=== PATIENT | male | born 1965 | race Caucasian/White ===

== ENCOUNTER 2016-06-28 06:01 | Outpatient (CLI) | payer MEDICARE ==
[~2016-06-28] VITALS: Ht 180.3 cm; Wt 104.5 kg
--- NOTE | ~2016-06-28 | HEMODYNAMI ---
PATIENT:KRISH DIOP MEDICAL RECORD: [id number] : 61 LOCATION:DKevinCAT ADMISSION DATE: 06/28/16 Generatedon:06/28/20168:23 Patient name: KRISH DIOP Patient #: [id number] : 1965 Date of study: 06/28/2016 Page: Of Hemodynamic Procedure Report Patient Data Patient Demographics Procedure consent was obtained First Name: KRISH Gender: Male Last Name: CHIKIS : 1965 Middle Initial: CARLOS Age: 51 year(s) Patient #: [id number] Race: Unknown SSN: [id number] Additional ID: [id number] Contact details Address: [address] [place] [address] State: [place] City: [facility] [place] Zip code: [address] Past Medical History Allergies: No known allergies Admission Admission Data Admission Date: 06/28/2016 Admission Time: 6:01 Admit Source: Other Insurance Payor: Private health insurance Height (in.): 71 BSA: 2.24 (m2) Height (cm.): 180.34 BMI: 32.08 (kg/m2) Weight (lbs.): 230 Weight (kg.): 104.33 Medications upon Admission Medications Dosage Times Administered Last Remarks per Delivery Day Date and Time Clopidogrel Yes 06/27/2016 0:00 Lab Results Lab Result Date: 06/28/2016 Lab Result Time: 6:30 Biochemistry Name Units Result Min Max Creatinine mg/dl 0.9 --(-*--)-- 0.6 1.3 CBC Name Units Result Min Max Hemoglobin g/dl 15.7 --(--*-)-- 13.5 17.5 Procedure Procedure Types Cath Procedure Diagnostic Procedure LHC LHC w/Coronaries w/Grafts Miscellaneous Procedures Moderate Sedation up to 30 minutes Procedure Description Procedure Date Procedure Date: 06/28/2016 Procedure Start Time: 7:57 Procedure End Time: 8:23 Procedure Staff Name Function Sagar Huitron MD Performing Physician Nano Herndon RN Nurse Kanu Horn RT Monitor Flores Cartagena RT Scrub Indication Angina Procedure Data Cath Procedure Fluoroscopy Diagnostic fluoroscopy Total fluoroscopy Time: 4.7 time: 4.7 min min Diagnostic fluoroscopy Total fluoroscopy dose: 929 dose: 929 mGy mGy Contrast Material Contrast Material Type Amount (ml) Isovue 300 99 Entry Location Entry Primary Successful Side Size Upsize Upsize Entry Closure Succes sful Closure Location (Fr) 1 (Fr) 2 (Fr) Remarks Device Remarks Femoral Right 5 Fr Exoseal artery Estimated blood loss: 5 ml Diagnostic catheters Device Type Used For End Catheter Placement Cordis 5Fr JL 4.0 Procedure Catheter (MP) Cordis Infinity 5Fr AR Procedure MOD Catheter Cordis Infinity 5Fr IM Procedure catheter Cordis Infinity 5Fr AR 2 Procedure MOD catheter Cordis 5Fr Pigtail Procedure Catheter (MP) Procedure Complications No complications Procedure Medications Medication Administration Route Dosage Oxygen NC 2 l/min Lidocaine 2% added to field 20 Heparin Flush Bag added to field 2 bags (1000units/500ml NS) 0.9% NaCl I.V. 100 ml/hr Versed I.V. 1 mg Fentanyl I.V. 50 mcg Versed I.V. 1 mg Fentanyl I.V. 50 mcg Versed I.V. 1 mg Fentanyl I.V. 50 mcg Versed I.V. 1 mg Fentanyl I.V. 50 mcg Hemodynamics Rest BSA: 2.24 (m2) HGB: 15.7 (g/dl) O2 Consumption: Estimated: 268.22 (ml/min) O2 Co nsumption indexed: Estimated:119.74 (ml/min/m) Heart Rate: 72 (bpm) Pressure Samples Time Site Value (mmHg) Purpose Heart Use Rate(bpm) 8:14 LV 138/-9,16 Snapshot 83 8:15 AO 138/78(104) Pullback 84 8:15 LV 152/-11,20 Pullback 84 Gradients Valve Time Site 1 Site 2 Mean SEP/DFP Peak To Heart Use (mmHg) (sec/min) Peak Rate (mmHg) (bpm) Aortic 8:15 LV AO 7 25 14 84 152/-11,20 138/78(104) Calculations Valve P-P Mean Valve Index Valve Source Name Gradient Area Flow (cm2) Aortic 14 7 14 7 Snapshots Pre Cath Intra NCS Post Cath Vital Signs Time Heart Resp SPO2 etCO2 [id number] NIBP (mmHg) Rhythm Pain Sedation Rate (ipm) (%) (mmHg) (mmHg) Status Level (bpm) 7:40:25 73 14 98 0 0 140/82(119) NSR 0 (11) 10(A) , No pain 7:44:39 77 14 100 0 0 142/93(122) NSR 0 (11) 10(A) , No pain 7:48:47 73 16 96 0 0 128/89(113) NSR 0 (11) 10(A) , No pain 7:53:01 79 16 94 0 0 137/80(103) NSR 0 (11) 10(A) , No pain 7:57:15 78 16 98 0 0 134/88(114) NSR 0 (11) 9(A) , No pain 8:01:29 85 16 100 0 0 132/88(109) NSR 0 (11) 9(A) , No pain 8:05:41 84 18 96 0 0 135/93(111) NSR 0 (11) 9(A) , No pain 8:09:57 84 17 100 0 0 138/82(115) NSR 0 (11) 9(A) , No pain 8:14:11 84 16 98 0 0 130/71(112) NSR 0 (11) 9(A) , No pain 8:18:23 81 17 99 0 0 129/89(110) NSR 0 (11) 10(A) , No pain 8:22:32 79 10 99 0 0 132/87(119) NSR 0 (11) 10(A) , No pain Medications Time Medication Route Dose Verified Delivered Reason Notes Effec tiveness by by 7:44:37 Oxygen NC 2 Sagar Buffie used for l/min Tomy Herndon RN procedure 7:44:46 Lidocaine 2% added 20ml Sagar Sagar for local to vial Tomy Huitron MD anesthetic field 7:44:53 Heparin Flush added 2 Sagar Sagar used for Bag to bags Tomy Huitron MD procedure (1000units/500ml field NS) 7:45:02 0.9% NaCl I.V. 100 Sagar Buffie Per ml/hr Tomy Herndon RN physician 7:53:46 Versed I.V. 1 mg Sagar Buffie for Tomy Herndon RN sedation 7:53:53 Fentanyl I.V. 50 Sagar Buffie for mcg Tomy Herndon RN sedation 7:55:58 Versed I.V. 1 mg Sagar Buffie for Tomy Herndon RN sedation 7:56:01 Fentanyl I.V. 50 Sagar Buffie for mcg Tomy Herndon RN sedation 7:58:43 Versed I.V. 1 mg Asgar Buffie for Tomy Herndon RN sedation 7:58:46 Fentanyl I.V. 50 Sagar Buffie for mcg Tomy Herndon RN sedation 8:11:43 Versed I.V. 1 mg Sagar Buffie for Tomy Herndon RN sedation 8:11:47 Fentanyl I.V. 50 Sagar Buffie for mcg Tomy Herndon RN sedation Procedure Log Time Note 7:20:41 Nano Herndon RN sent for patient. Start room use. 7:34:15 Diagnostic Cath Status : Elective 7:34:34 Indication : Angina 7:34:48 Time tracking: Regular hours 7:34:53 Plan of Care:Hemodynamics will remain stable., Cardiac rhythm will remain stable., Comfort level will be maintained., Respiratory function will remain adequate., Patient/ family verbilizes understanding of procedure., Procedure tolerated without complication., Recovers from procedure without complications.. 7:35:18 Patient received from Outpatients to [facility] 1 Alert and oriented. Tansferred to table in Supine position. 7:35:19 Warm blankets applied, and timothy hugger turned on for patient comfort. 7:35:19 Correct patient and procedure confirmed by team. 7:35:21 Signed procedure consent form obtained from patient. 7:35:22 ECG and BP/O2 sat monitors applied to patient. 7:39:16 Vital chart was started 7:39:44 Baseline sample Acquired. 7:39:48 Rhythm: sinus rhythm 7:40:04 H&P Date Dictated: 06/20/2016 Within 30 days and on chart., H&P Addendum completed by physician on day of procedure. (MUST COMPLETE FOR ALL OUTPATIENTS). 7:40:05 Pre-procedure instructions explained to patient. 7:40:05 Pre-op teaching completed and patient verbalized understanding. 7:40:07 Family in waiting room. 7:40:09 Patient NPO since Midnight. 7:40:15 Patient allergic to No known allergies 7:40:18 Is the patient allergic to Iodine/contrast media? No. 7:40:19 Is patient on blood thinner?Yes 7:40:21 ACC The patient was administered the following blood thiners within the last 24 hours: ACCPlavix 7:40:23 Patient diabetic? Yes. 7:40:25 If diabetic: On Metformin? Yes 7:43:48 If on Metformin: Last Dose? 06/26/2016 7:43:53 Previous problem with sedation/anesthesia? No ? 7:43:54 Snore? Yes 7:43:55 Sleep apnea? No 7:43:57 Deviated septum? No 7:43:57 Opens mouth fully? Yes 7:43:58 Sticks out tongue? Yes 7:44:00 Airway obstruction? No ? 7:44:03 Dentures? Yes in tight 7:44:09 Pre procedure: right dorsailis pedis pulse 1+ Palpable, but thready & weak; easily obliterated 7:44:12 Patient pain scale 0/10 ?. 7:44:25 IV patent on arrival in left hand with 0.9% NaCl at O. 7:44:37 Oxygen 2 l/min NC was given by Nano Herndon RN; used for procedure; 7:44:46 Lidocaine 2% 20ml vial added to field was given by Sagar Huitron MD; for local anesthetic; 7:44:53 Heparin Flush Bag (1000units/500ml NS) 2 bags added to field was given by Sagar Huitron MD; used for procedure; 7:45:02 0.9% NaCl 100 ml/hr I.V. was given by Nano Herndon RN; Per physician; 7:45:20 Lab Result : Creatinine 0.9 mg/dl 7:45:20 Lab Result : Hemoglobin 15.7 g/dl 7:45:23 Lab results completed and on chart. 7:45:26 Right groin area was prepped with chlora-prep and draped in sterile fashion 7:45:27 Alarms reviewed by R. N. 7:45:27 Sharps counted by scrub and verified by R.N. 7:45:53 Use device set Femoral Dx 7:45:55 Tegaderm 4 x 4 opened to sterile field. 7:45:55 Acist Manifold opened to sterile field. 7:45:56 Acist Hand Control opened to sterile field. 7:45:57 Acist Syringe opened to sterile field. 7:45:57 Bag Decanter opened to sterile field. 7:45:58 Cardinal Cath Pack opened to sterile field. 7:45:58 Terumo 5Fr Mercer Sheath opened to sterile field. 7:45:58 St Cornell 260cm J .035 wire opened to sterile field. 7:46:02 Cordis Infinity 5Fr Multipack catheter opened to sterile field. 7:51:39 Zero performed for pressure channel P1 7:52:16 Physician arrived 7:52:16 --------ALL STOP TIME OUT------ 7:52:17 Final Timeout: patient, procedure, and site verified with staff and physician. All members of the team are in agreement. 7:52:18 Right groin site verified by team. 7:52:20 Physical assessment completed. ASA score P 2 - A patient with mild systemic disease as per Sagar Huitron MD. 7:52:24 Sedation plan: IV Moderate Sedation Versed, Fentanyl 7:52:37 Patient Weight : 230 lbs 7:52:46 Patient Height : 71 inches 7:52:46 Insurance Payor : Private health insurance 7:52:47 Admit Source: Other 7:53:46 Versed 1 mg I.V. was given by Nano Herndon RN; for sedation; 7:53:53 Fentanyl 50 mcg I.V. was given by Nano Herndon RN; for sedation; 7:55:58 Versed 1 mg I.V. was given by Nano Herndon RN; for sedation; 7:56:01 Fentanyl 50 mcg I.V. was given by Nano Herndon RN; for sedation; 7:57:01 Procedure started. 7:57:01 Full Disclosure recording started 7:57:04 Local anesthetic to right femoral artery with Lidocaine 2% by Sagar Huitron MD.INITIAL ACCESS ONLY 7:57:10 A 5 Fr sheath was inserted into the Right Femoral artery 7:58:43 Versed 1 mg I.V. was given by Nano Herndon RN; for sedation; 7:58:46 Fentanyl 50 mcg I.V. was given by Nano Herndon RN; for sedation; 8:00:30 A Cordis 5Fr JL 4.0 Catheter (MP) was advanced over the wire and used for Procedure. 8:01:11 LCA angiography performed. 8:02:21 Catheter exchanged over wire. 8:03:21 A Cordis Infinity 5Fr AR MOD Catheter was advanced over the wire and used for Procedure. 8:03:49 RCA angiography performed. 8:05:56 SVG to Circ angiography performed. 8:07:25 Catheter exchanged over wire. 8:08:41 A Cordis Infinity 5Fr IM catheter was advanced over the wire and used for Procedure. 8:09:23 ZUNIGA to LAD angiography performed. 8:11:18 Catheter exchanged over wire. 8:11:43 Versed 1 mg I.V. was given by Nano Herndon RN; for sedation; 8:11:47 Fentanyl 50 mcg I.V. was given by Nano Herndon RN; for sedation; 8:12:03 A Cordis Infinity 5Fr AR 2 MOD catheter was advanced over the wire and used for Procedure. 8:12:38 SVG to RCA occluded. 8:13:10 Catheter exchanged over wire. 8:13:58 A Cordis 5Fr Pigtail Catheter (MP) was advanced over the wire and used for Procedure. 8:14:22 LV gram done using AGUERO 8:14:24 Injector settings: Ml/sec: 10, Volume: 20, 8:14:26 LV hemodynamics recorded. 8:14:49 EF : 50 % 8:15:40 Catheter removed. 8:15:48 Cordis 5Fr Exoseal opened to sterile field. 8:16:49 Sheath removed intact; hemostasis achieved with Exoseal to the Right Femoral artery. 8:17:52 Procedure ended.(Physican Out) 8:18:23 Fluoroscopy time 04.70 minutes. 8:18:27 Fluoroscopy dose: 929 mGy 8:18:27 Flurop Dose total: 929 8:18:36 Contrast amount:Isovue 300 99ml. 8:18:40 Sharps counted by scrub and verified by R.N. 8:18:59 Insertion/operative site no bleeding no hematoma. 8:19:01 Post-op/insertion site Right Femoral artery dressed using a 4 x 4 and Tegaderm. 8:19:16 Post right femoral artery:stable, soft, clean and dry 8:19:29 Post Procedure Pulses reassessed and unchanged 8:19:31 Post-procedure physical assessment completed. ASA score P 2 - A patient with mild systemic disease as per Sagar Huitron MD. 8:19:33 Post procedure rhythm: unchanged. 8:19:36 Estimated blood loss: 5 ml 8:19:38 Post procedure instruction explained to patient.Patient verbalizes understanding. 8:19:38 Patient needs reinforcement of post procedure teaching. 8:19:44 Procedure type changed to Cath procedure, Diagnostic procedure, LHC, LHC w/Coronaries w/Grafts, Miscellaneous Procedures, Moderate Sedation up to 30 minutes 8:23:08 Procedure Complication : No complications 8:23:09 Vital chart was stopped 8:23:10 See physician's report for complete and final results. 8:23:11 Report given to Post Procedure Room. 8:23:13 Patient transfered to Post Procedure Room with Stretcher. 8:23:15 Procedure ended. 8:23:15 Full Disclosure recording stopped 8:23:22 ACC-PCI Only Patient was given prescriptions, or instructed by Sagar Huitron MD to start/continue the following medications upon discharge: Plavix 8:23:23 End room use (Document Last) Device Usage Item Name Manufacture Quantity Catalog Hospital Part Current Minimal Lo t# / Number Charge Number Stock Stock Serial# Code Tegaderm 1 [id number] 505669 409142 5 4 x 4 Acist Acist 1 24319 347497 358849 361821 5 Manifold Medical Systems Inc Acist Acist 1 30816 609609 587038 861830 5 Hand Medical Control Systems Inc Acist Acist 1 94652 407879 081491 173376 20 Syringe Medical Systems Inc Bag Microtek 1 2002S 720189 28066 658289 5 DecTradesy [employer]. Cardinal Cardinal 1 [id number] 462787 36209 383732 5 Cath Pack Health Terumo Terumo 1 [id number] 233227 972737 266590 [address] St Cornell 1 015718 288685 774460 774301 30 260cm J .035 wire Cordis Cardinal 1 [id number] 590918 59017 470198 30 Spectral Edge 5Fr Multipack catheter Cordis Cardinal 1 [id number] 5 5Fr Callix [employer] Health 4.0 Catheter (MP) Cordis Cardinal 1 [id number] 957088 115474 539221 15 Infinity Health 5Fr AR MOD Catheter Cordis Cardinal 1 [id number] 278706 727009 664047 5 Infinity Health 5Fr IM catheter Cordis Cardinal 1 [id number] 083847 918759 596717 20 Infinity Health 5Fr AR 2 MOD catheter Cordis Cardinal 1 EX500 409638 325719 783142 10 5Fr Health Exoseal Cordis Cardinal 1 [id number] 5 5Fr Health Pigtail Catheter (MP) Signature Audit [place] Stage Time Signature Unsigned Intra-Procedure 06/28/2016 Kanu Horn 8:23:38 AM RT(R) Signatures Monitor : Kanu Horn RT Signature : Date : Time : [address] [address]
[2016-06-28] MEDS ORDERED: ACTOS30 MG PO (06:17)
[2016-06-28] MEDS ORDERED: GLUCOPHAGE500 MG PO (06:17)
[2016-06-28] MEDS ORDERED: HUMULIN 70100 UNIT/1 (06:18)
[2016-06-28] MEDS ORDERED: BAYER CHEWABLE81 MG PO (06:31)
[2016-06-28] MEDS ORDERED: GABAPENTIN100 MG PO (06:31)
[2016-06-28] MEDS ORDERED: LIPITOR10 MG PO (06:32)
[2016-06-28] MEDS ORDERED: ISOSORBIDE MONO30 M1 PO ×2 (06:32→08:41)
[2016-06-28] MEDS ORDERED: GLUCOTROL 5 MG T5 MG PO (06:32)
[2016-06-28] MEDS ORDERED: LOPRESSOR25 MG PO (06:33)
[2016-06-28] MEDS ORDERED: NITROSTAT0.4 MG SL (06:33)
[2016-06-28] MEDS ORDERED: PLAVIX75 MG PO (06:34)
[2016-06-28 06:35] LABS: BASOPHILS 0.3 % (0.0-2.0); EOSINOPHILS 1.1 % (0-7); HEMATOCRIT 44.8 % (42.0-54.0); HEMOGLOBIN 15.7 g/dL (13.5-17.5); IMMATURE GRANULOCYTES 0.3 % (0-5); MCH 32.7 pg (26.0-34.0); MCV 93.3 fL (80.0-100.0); MEAN PLATELET VOLUME 11.5 fL (7.4-10.4); MONOCYTES 7.1 % (2-11); NEUTROPHILS 57.2 % (40-80); PLATELET COUNT 200 10x3/uL (130-400); RDW 12.2 % (11.5-14.5); WBC 7.6 10x3/uL (4.8-10.8)
[2016-06-28 06:36] VITALS: BP 143/83; Ht 180.3 cm; Wt 104.5 kg
[2016-06-28 06:44] LABS: CALC OSMOLALITY 286 mosm/kg (275-300); CARBON DIOXIDE 27.3 mmol/L (21.0-32.0); CHLORIDE - SERUM 100 mmol/L (98-107); CREATININE - SERUM 0.9 mg/dL (0.6-1.3); GLUCOSE 325 mg/dL (74-106); POTASSIUM - SERUM 4.1 mmol/L (3.5-5.1); SODIUM 137 mmol/L (136-145); UREA NITROGEN 13 mg/dL (7-18); eGFR NON AFRICAN AMERICAN > 90 mL/min (90-120)
--- NOTE | 2016-06-28 08:38 | NUR ---
CALLED IN RX FOR IMDUR 30MG DAILY WITH 5 REFILLS PER IBRAHIM. CALLED IN TO [facility] BY
--- NOTE | 2016-06-28 08:45 | NUR ---
0845 AWAKE, LYING FLAT AND TALKING WITH FAMILY. NSR RATE 74 W NO C/O CHEST PAIN. PULSES PALP X 4. R GROIN 5F EXOSEAL C/D/I WITH NO HEMATOMA OR BLEEDING.
--- NOTE | 2016-06-28 09:16 | NUR ---
ALL VITALS WNL. NSR RATE 74 W NO C/O CHEST PAIN. PULSES PALP X 4. R GROIN REMAINS C/D/I WITH NO HEMATOMA OR BLEEDING. FAMILY REMAINS AT SIDE.
--- NOTE | 2016-06-28 09:50 | NUR ---
RESTING WITH EYES CLOSED, ROOM AIR. VITALS ALL WNL. R GR REMAINS C/D/I WITH NO HEMATOMA OR BLEEDING. AT SIDE.
--- NOTE | 2016-06-28 10:22 | NUR ---
NO CHANGE IN ASSESSMENT R/GROIN CDI WITH CHEST PAIN DENIED VSS WILL MONITOR
--- NOTE | 2016-06-28 10:28 | NUR ---
REPOSITIONED TO SITTING WITH HOB UP 30 DEGREES. PIV REMOVED FROM LEFT ARM WITH DRESSING APPLIED R/GROIN REMAINS CDI WITH NO BLEEDING NOTED
--- NOTE | 2016-06-28 10:48 | NUR ---
AMBULATED TO BATHROOM TO VOID. R GROIN REMAINS C/D/I AFTER AMBULATING.
--- NOTE | 2016-06-28 10:54 | NUR ---
D/C INSTRUCTIONS DISCUSSED WITH PATIENT AND AT BEDSIDE. WHEELED OUT WHEELCHAIR BY CATH TEAM.
--- NOTE | 2016-07-03 15:27 | OP ---
PATIENT NAME: KRISH DIOP MEDICAL RECORD: [id number] :61 LOCATION:D.CAT ADMISSION DATE: SURGEON: BEBE IBRAHIM M.D. DATE OF OPERATION: 06/28/2016 REFERRING PHYSICIAN: Dr. Bhupendra Vinson. PROCEDURES PERFORMED: 1. Selective coronary angiography. 2. Left heart catheterization with ventriculogram. 3. Left internal mammary injection. 4. Bypass angiography. INDICATION: A 51-year-old gentleman, who presents with symptoms of angina. EQUIPMENTS USED: A 5-Gabonese JL4, AR1, mammary catheter, pigtail catheter. TECHNIQUE: A 5-Gabonese sheath was inserted in retrograde fashion in the right common femoral artery. Next, selective coronary angiography was performed in standard 5-Gabonese JL4 and AR modified catheters. Bypass angiography was performed using an AR modified catheter. The internal mammary was selected with internal mammary catheter. Finally, left heart catheterization performed using pigtail catheter. CORONARY ANATOMY: 1. Left main: Left main trunk is moderate in caliber. It gives rise to the LAD and insertion. It has mild irregularities, but nothing worse than 20%. 2. LAD: This vessel is moderate in caliber. It is 100% occluded in the proximal segment. There is competitive flow seen to the distal segment. 3. Circumflex: This vessel is large in caliber and codominant. The mid vessel demonstrates a long 70% stenosis. The first lateral branch demonstrates competitive flow. The distal circumflex provides collaterals to the distal right coronary artery. 4. Right coronary artery: This vessel is moderate in caliber. It is severely diseased in the proximal mid segments. There is a long 80% stenosis involving the proximal to mid segment. The vessel appears to be subtotaled at the bifurcation. There is a small posterolateral branch seen filling, which is less than 2 mm in diameter. 5. Saphenous vein graft to the PDA: This graft is occluded at the origin. 6. Saphenous vein graft to circumflex: This appears to be a skip graft touching down the diagonal branch as well as the first lateral branch of the circumflex. The graft to the circumflex fills the lateral branch as well as the entire AV portion of the circumflex and distal right coronary artery. 7. Left internal mammary artery to LAD: This graft is widely patent throughout its course. 8. Left ventricle: Left ventricle is normal in size and function. Estimated ejection fraction is in lower limits of normal around 50%. IMPRESSION: 1. Severe [place] coronary artery disease. 2. Patent bypass graft to the left anterior descending, diagonal, and circumflex. 3. The graft to the right coronary is occluded, but the distal vessel fills through rich collaterals from the circumflex. OPERATIVE REPORT [id number] KRISH DIOP RECOMMENDATIONS: At this point, we will continue with medical management. I suspect his symptoms may have been secondary to his occluded distal right coronary artery, it is well collateralized. At this point, we will continue medical management. TRANSINT:[id number] Voice Confirmation ID: [id number] DOCUMENT ID: [id number] BEBE IBRAHIM M.D. at 1527 CC: [id number] DICTATION DATE: 06/28/16 0825 POOL SERVICER: 06/28/16 0847 DEP CLI 06/28/16 [place] [id number] [place] [address]
== END 2016-06-28 11:01 | disposition home or self-care (01) ==
LOC: D.CATH 06:01
PROVIDERS: Internal Medicine Cardiovascular Disease
DX: I25.119 Atherosclerotic heart disease of native coronary artery with unspecified angina pectoris (principal); I25.719 Atherosclerosis of autologous vein coronary artery bypass graft(s) with unspecified angina pectoris

== ENCOUNTER → 2018-08-26 08:05 | Outpatient (CLI) | payer MEDICARE ==
[2016-06-28 06:36] VITALS: BMI 32.1
[~2018-08-26 08:05] MED LIST: ACTOS30 MG PO; BAYER CHEWABLE81 MG PO; GABAPENTIN100 MG PO; GLUCOPHAGE500 MG PO; GLUCOTROL 5 MG T5 MG PO; HUMULIN 70100 UNIT/1; ISOSORBIDE MONO30 M1 PO; LIPITOR10 MG PO; LOPRESSOR25 MG PO; NITROSTAT0.4 MG SL; PLAVIX75 MG PO
== END | disposition home or self-care (01) ==
LOC: D.HCCARDIO 08:05
PROVIDERS: ATTEND Internal Medicine Cardiovascular Disease
DX: I34.0 Nonrheumatic mitral (valve) insufficiency (principal)

== ENCOUNTER 2019-11-20 05:00 | Inpatient (IN) | payer MEDICARE ==
[~2019-11-20] VITALS: Ht 180.3 cm; Wt 85.9 kg
[2019-11-20] VITALS (8 sets, daily range): BP systolic 136–159; BP diastolic 80–91
--- NOTE | ~2019-11-20 | OP ---
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 PROCEDURE: Suboccipital craniectomy for decompression of the right cerebellum. SURGEON: Marika Blackwell MD LUBRICATION SUPERVISOR: Yung Huizar APN DESCRIPTION OF TECHNIQUE: After placement in Herron head pins and sterile prep and drape. After adequate general endotracheal anesthesia, infiltration of 1:100,000 epinephrine with 1% lidocaine was used to repair the scalp for incision over the right cerebellar convexity. Pat clips were applied to the scalp for hemostasis. A craniotome was used to create two bishop holes. These were connected with the Midas-Flip drill using a side cutting bishop. Following this, the dura was obviously quite tense and without pulsation. An incision was made in the dura with a #11 blade in bipolar cautery leg. Upon inspection of the cerebellum was obviously and suffered an infarct, was quite edematous with the cerebellar architecture flattened. The bernard was devoid of any bleeding. Using gentle suction and irrigation, this portion of the cerebellum was removed, which was obviously necrotic with gentle suction and irrigation approximately a centimeter and a half of the cerebellum was removed in a circumferential manner in the right cerebellar convexity. Meticulous hemostasis was maintained over the dura. There was no bleeding from the brain. The pulsations returned to the cerebellum. There was good egress of CSF from the fourth ventricle. The craniectomy defect was left open as well as the dura to allow further decompression after surgery. The ligamentum nuchae was reapproximated with interrupted 2-0 Vicryl suture. The galea was reapproximated with interrupted 2-0 Vicryl suture. The skin was closed with krista. During all portions of the procedure, Yung Huizar APN, assisted with retraction and hemostasis of the mechanical portions of the procedure. The patient was awakened in stable condition and taken to recovery. All counts were reported as correct. Estimated blood loss was minimal. TRANSINT:[id number] Voice Confirmation ID: [id number] DOCUMENT ID: [id number] MARIKA BLACKWELL MD CC: [id number] DICTATION DATE: 12/17/192320 START UP SPECIALIST: 12/18/19 09 DIS IN 12/03/19 [place] [id number] [place] [id number]
[2019-11-20] MEDS ORDERED: LANTUS SOLOSTAR3 ML SC (05:11)
[2019-11-20 06:26] LABS: BILIRUBIN NEGATIVE (NEGATIVE); GLUCOSE 1000 mg/dL (NEGATIVE); KETONE LARGE mg/dL (NEGATIVE); NITRITE NEGATIVE (NEGATIVE); UROBILINOGEN NORMAL (NORMAL)
--- NOTE | 2019-11-20 06:28 | NUR ---
BS 367 ON ARRIVAL TO ER
[2019-11-20 06:30] LABS: CALC OSMOLALITY 290 mosm/kg (275-300); CALCIUM 8.8 mg/dL (8.5-10.1); CARBON DIOXIDE 24.5 mmol/L (21.0-32.0); CHLORIDE - SERUM 101 mmol/L (98-107); CREATININE - SERUM 0.9 mg/dL (0.6-1.3); GLUCOSE 359 mg/dL (74-106); POTASSIUM - SERUM 4.3 mmol/L (3.5-5.1); SODIUM 138 mmol/L (136-145); UREA NITROGEN 14 mg/dL (7-18); eGFR NON AFRICAN AMERICAN > 90 mL/min (90-120)
[2019-11-20 06:34] LABS: BASOPHILS 0.1 % (0-2); EOSINOPHILS 0 % (0-7); HEMATOCRIT 43.4 % (42.0-54.0); HEMOGLOBIN 15.4 g/dL (13.5-17.5); IMMATURE GRANULOCYTES 0.1 % (0-5); LYMPHOCYTES 10.7 % (15-50); MCHC 35.5 g/dL (31.0-37.0); MCV 90.2 fL (80.0-100.0); MEAN PLATELET VOLUME 11.2 fL (7.4-10.4); MONOCYTES 1.2 % (2-11); NEUTROPHILS 87.9 % (40-80); PLATELET COUNT 196 10x3/uL (130-400); RBC 4.81 10x6/uL (4.20-6.10); WBC 8.5 10x3/uL (4.8-10.8)
[2019-11-20 06:44] LABS: ALKALINE PHOSPHATASE 69 U/L (30-120); ALT (SGPT) 30 U/L (10-68); BILIRUBIN - TOTAL 1.74 mg/dL (0.2-1.3); MAGNESIUM - SERUM 1.7 mg/dL (1.8-2.4); PROTEIN - SERUM 7.2 g/dL (6.4-8.2); THYROID STIMULATING HORMONE 1.39 uIU/mL (0.36-3.74)
[2019-11-20 06:45] LABS: LIPASE 43 U/L (73-393)
--- NOTE | 2019-11-20 08:35 | NUR ---
ASSUMED CARE OF PT. RESTING IN BED WITH EYES CLOSED. EASILY AROUSEABLE WHEN NAME CALLED. DENIES PAIN. ONLY C/O IS "SOME NAUSEA AND THIRSTY" EXPL POC TO PT AND S/O VERB UNDER
--- NOTE | 2019-11-20 08:50 | NUR ---
FSBS= 275 MG/DL
--- NOTE | 2019-11-20 09:20 | NUR ---
COVID SWAB COLLECTED, LABELED AT BS AND SENT TO LAB
--- NOTE | 2019-11-20 09:45 | NUR ---
PT C/O NAUSEA, VOMITING MOD AMTS BILE. MED PER PRN ORDERS
--- NOTE | 2019-11-20 10:38 | NUR ---
VOIDED 1200 ML CLEAR YELLOW URINE VIA URINAL. REPORTS "NAUSEA SOME BETTER"
--- NOTE | 2019-11-20 11:36 | NUR ---
REPORT TO NAHUM WADE
--- NOTE | 2019-11-20 11:47 | NUR ---
FSBS= 262 MG/DL
--- NOTE | 2019-11-20 12:05 | NUR ---
ADMIT TO ROOM #2134, CONDITION STABLE
[2019-11-20 20:10] LABS: APTT 23.1 SECONDS (22.8-39.4); INR 1.08 (0.85-1.17); PROTIME 13.9 SECONDS (11.6-15.0)
[2019-11-20 20:11] LABS: D-DIMER-QUANTITATIVE 0.46 ug/mLFEU (0.20-0.54)
[2019-11-21 00:30] VITALS: BP 141/78
[2019-11-21 05:53] LABS: BASOPHILS 0.1 % (0-2); EOSINOPHILS 0 % (0-7); HEMATOCRIT 45.7 % (42.0-54.0); HEMOGLOBIN 15.7 g/dL (13.5-17.5); IMMATURE GRANULOCYTES 0.2 % (0-5); LYMPHOCYTES 16.8 % (15-50); MCH 31.7 pg (26.0-34.0); MCHC 34.4 g/dL (31.0-37.0); MEAN PLATELET VOLUME 11.1 fL (7.4-10.4); MONOCYTES 4.9 % (2-11); PLATELET COUNT 234 10x3/uL (130-400); RBC 4.95 10x6/uL (4.20-6.10); RDW 12.3 % (11.5-14.5)
[2019-11-21 05:55] LABS: MCV 92.3 fL (80.0-100.0); WBC 13.3 10x3/uL (4.8-10.8)
[2019-11-21 06:19] LABS: ALBUMIN 3.5 g/dL (3.4-5.0); ALKALINE PHOSPHATASE 63 U/L (30-120); ALT (SGPT) 23 U/L (10-68); BILIRUBIN - TOTAL 1.78 mg/dL (0.2-1.3); CALCIUM 8.4 mg/dL (8.5-10.1); CARBON DIOXIDE 25.6 mmol/L (21.0-32.0); CHLORIDE - SERUM 100 mmol/L (98-107); CREATININE - SERUM 0.8 mg/dL (0.6-1.3); MAGNESIUM - SERUM 1.9 mg/dL (1.8-2.4); PROTEIN - SERUM 6.8 g/dL (6.4-8.2); SODIUM 135 mmol/L (136-145); UREA NITROGEN 12 mg/dL (7-18); eGFR NON AFRICAN AMERICAN > 90 mL/min (90-120)
[2019-11-21 06:25] LABS: CALC OSMOLALITY 273 mosm/kg (275-300); GLUCOSE 162 mg/dL (74-106); POTASSIUM - SERUM 3.3 mmol/L (3.5-5.1)
[2019-11-21 07:08] VITALS: BP 136/80; BMI 29.3
--- NOTE | 2019-11-21 09:19 | NUR ---
PT AWAKE AND ORIENTED, LYING IN BED WITH LIGHTS OFF. PTT ATTEMPTED TO TAKE MORNING MEDS BUT VOMMITED SHORLTY AFTER. NEW I/V STARTED IN LFA, 20G, ONE STICK. ADMINISTERED ZOFRAN PER ORDER. PT C/O NOT BEING ABLE TO HAVE VISITORS STATING HE WAS TOLD HE WAS NEGATIVE FOR COVID AND WOULD BE MOVED THIS MORNING, UPON FURTHER INVESTIGATION WE FOUND NO RESULTS AND TAX ASSOCIATE ATTORNEY WAS NOT AWARE OF THIS. UNSURE WHERE THE CONFUSION HAPPENED BUT I INFOMRED BOTH PT AND HIS . WILL CNT TO UPDATE NEW THINGS HAPPEN. CL IN REACH, SRX2.
--- NOTE | 2019-11-21 11:24 | NUR ---
I have reviewed this patient and I concur with the Shift Assessment completed by the Licensed Practical Nurse today this shift.
--- NOTE | 2019-11-21 13:27 | NUR ---
I have reviewed this patient and I concur with the Shift Assessment completed by the Licensed Practical Nurse today this shift.
[2019-11-21 15:00] VITALS: BP 138/87
[2019-11-21 20:00] VITALS: BP 126/77
--- NOTE | 2019-11-21 22:09 | NUR ---
INITIAL ROUNDS COMPLETED AT 1914 HRS. PT STATED HIS INGRAM WASN'T BAD. ASSESSMENT COMPLETED AT 1954 HRS. VSS. ALERT AND ORIENTED TO PERSON, PLACE AND TIME. WAY. IV TO L WRIST WITH NS AT 100CC/HR. IV PATENT. LUNGS DIMINISHED IN BASES BILAT. WAY. PALPABLE PERIPHERAL PULSES. PM FSBS 162. 4 UNITS HUMALOG GIVEN SUB-Q PER S/S. PM MEDS GIVEN. PT REFUSED HS SNACK. PT CURRENTLY RESTING WITH EYES CLOSED. RESP EVEN AND REGULAR. SR UP X1,CALL LIGHT WITHIN REACH.
[2019-11-22] VITALS: BP 153/88
--- NOTE | 2019-11-22 00:07 | NUR ---
PT RESTING WITH EYES CLOSED. RESP EVEN AND REGULAR. CALL LIGHT WITHIN REACH.
--- NOTE | 2019-11-22 02:58 | NUR ---
PT RESTING WITH EYES CLOSED. RESP EVEN AND REGULAR. CALL LIGHT WITHIN REACH.
[2019-11-22 04:00] VITALS: BP 161/88
--- NOTE | 2019-11-22 04:36 | NUR ---
TYLENOL 650MG PO GIVEN FOR C/O INGRAM.
[2019-11-22 05:13] LABS: BASOPHILS 0.2 % (0-2); EOSINOPHILS 0.1 % (0-7); HEMATOCRIT 49.3 % (42.0-54.0); HEMOGLOBIN 17.1 g/dL (13.5-17.5); IMMATURE GRANULOCYTES 0.3 % (0-5); LYMPHOCYTES 17.1 % (15-50); MCH 31.7 pg (26.0-34.0); MCHC 34.7 g/dL (31.0-37.0); MCV 91.3 fL (80.0-100.0); MEAN PLATELET VOLUME 10.9 fL (7.4-10.4); MONOCYTES 5.4 % (2-11); NEUTROPHILS 76.9 % (40-80); PLATELET COUNT 236 10x3/uL (130-400); WBC 11.4 10x3/uL (4.8-10.8)
[2019-11-22 05:50] LABS: ALBUMIN 3.5 g/dL (3.4-5.0); ALKALINE PHOSPHATASE 69 U/L (30-120); ALT (SGPT) 22 U/L (10-68); BILIRUBIN - TOTAL 1.85 mg/dL (0.2-1.3); CALC OSMOLALITY 267 mosm/kg (275-300); CALCIUM 8.5 mg/dL (8.5-10.1); CARBON DIOXIDE 26.4 mmol/L (21.0-32.0); CHLORIDE - SERUM 97 mmol/L (98-107); CREATININE - SERUM 0.8 mg/dL (0.6-1.3); GLUCOSE 161 mg/dL (74-106); MAGNESIUM - SERUM 1.7 mg/dL (1.8-2.4); POTASSIUM - SERUM 3.3 mmol/L (3.5-5.1); PROTEIN - SERUM 7.1 g/dL (6.4-8.2); SODIUM 132 mmol/L (136-145); UREA NITROGEN 12 mg/dL (7-18); eGFR NON AFRICAN AMERICAN > 90 mL/min (90-120)
--- NOTE | 2019-11-22 06:48 | NUR ---
VSS THROUGHOUT NIGHT. AM K+ AND MAG TREATED PER ELECTROLYTE PROTOCOL. NEEDS MET; WILL CONTINUE TO MONITOR.
--- NOTE | 2019-11-22 07:41 | NUR ---
PT LAYING SUPINE, RR EVEN AND UNLABORED. NO DISTRESS NOTED. CALL LIGHT WITHIN REACH. BED IN LOWEST POSITION. WILL CONTINUE TO MONITOR.
[2019-11-22 08:31] VITALS: BP 160/94
--- NOTE | 2019-11-22 10:16 | NUR ---
I have reviewed this patient and I concur with the Shift Assessment completed by the Licensed Practical Nurse today this shift.
[2019-11-22 13:20] VITALS: BP 156/89
[2019-11-22 18:29] VITALS: BP 158/85
--- NOTE | 2019-11-22 20:30 | NUR ---
RESTING QUIETLY WITH NO DISTRESS NOTED. RESP UNLABORED. NO COMPLAINTS VOICED AT PRESENT. CL IN REACH
[2019-11-23 00:30] VITALS: BP 145/92
[2019-11-23 05:00] VITALS: BP 155/89
--- NOTE | 2019-11-23 06:07 | NUR ---
I have reviewed this patient and I concur with the Shift Assessment completed by the Licensed Practical Nurse today this shift.
[2019-11-23 06:13] LABS: BASOPHILS 0.2 % (0-2); EOSINOPHILS 0.1 % (0-7); HEMATOCRIT 46.4 % (42.0-54.0); HEMOGLOBIN 16.1 g/dL (13.5-17.5); IMMATURE GRANULOCYTES 0.2 % (0-5); LYMPHOCYTES 23.3 % (15-50); MCH 31.4 pg (26.0-34.0); MCHC 34.7 g/dL (31.0-37.0); MCV 90.6 fL (80.0-100.0); MEAN PLATELET VOLUME 10.3 fL (7.4-10.4); NEUTROPHILS 69.2 % (40-80); PLATELET COUNT 241 10x3/uL (130-400); RBC 5.12 10x6/uL (4.20-6.10); RDW 11.9 % (11.5-14.5); WBC 12.4 10x3/uL (4.8-10.8)
[2019-11-23 06:40] LABS: ALBUMIN 3.2 g/dL (3.4-5.0); ALKALINE PHOSPHATASE 69 U/L (30-120); ALT (SGPT) 19 U/L (10-68); BILIRUBIN - TOTAL 1.84 mg/dL (0.2-1.3); CALC OSMOLALITY 267 mosm/kg (275-300); CALCIUM 8.3 mg/dL (8.5-10.1); CHLORIDE - SERUM 99 mmol/L (98-107); CREATININE - SERUM 0.8 mg/dL (0.6-1.3); GLUCOSE 156 mg/dL (74-106); MAGNESIUM - SERUM 1.8 mg/dL (1.8-2.4); POTASSIUM - SERUM 3.2 mmol/L (3.5-5.1); PROTEIN - SERUM 6.6 g/dL (6.4-8.2); SODIUM 133 mmol/L (136-145); UREA NITROGEN 10 mg/dL (7-18); eGFR NON AFRICAN AMERICAN > 90 mL/min (90-120)
--- NOTE | 2019-11-23 07:45 | NUR ---
REPORT RECIEVED. PT LYING ON BACK WITH TOWEL COVERING FACE. PT STATES HE JUST REALLY DOESNT FEEL GOOD. HE HAS A L FA PIV INFUSING NS @ 100. RR EVEN AND UNLABORED ON RA. BED LOCKED AND IN LOWEST POSITION,CALL LIGHT WITHIN REACH. WILL CTM
[2019-11-23 08:30] VITALS: BP 168/95
[2019-11-23 12:00] VITALS: BP 171/94
--- NOTE | 2019-11-23 12:28 | NUR ---
ELMO NOTIFIED OF PT BP OF 171/94. WILL CTM
[2019-11-23 13:10] VITALS: BMI 29.3
[2019-11-23 16:50] VITALS: BP 142/81
--- NOTE | 2019-11-23 17:59 | NUR ---
I have reviewed this patient and I concur with the Shift Assessment completed by the Licensed Practical Nurse today this shift.
[2019-11-23 20:00] VITALS: BP 110/66
--- NOTE | 2019-11-23 21:10 | NUR ---
PT LYIMG IM BED AWAKE AND ALERT. PT COMPLAIN OF NAUSEA PRN ZOFRZN ADMINISTERED. PT HAS NO FURTHER COMPLAINTS AT THIS TIME. NO SIGNS OF DISTERSS NOTED RESPIRSTION EVEN AND UNLABORED. CALL LIGHT AND OTHER PERSONAL ITEMS ARE WITH IN REACH. PT ENCOURAGED TO CALL FOR HELP WHEN NEEDED. WILL CONTINUE TO TR
[2019-11-24] VITALS: BP 145/92
--- NOTE | 2019-11-24 00:51 | NUR ---
NO TELEMETRY AVAIABLE PER VENDING MACHINE FILLER. SETTLEMENT WORKER IS AWARE. NO SIGNS OF DISTRESS AT THIS TIME. CALL LIGHT AND OTHER PERSONAL ITEMS WITH INREACH. WILL CONTINUE TO MONITOR
--- NOTE | 2019-11-24 02:07 | NUR ---
PRN PHENERGAN GIVEN FOR NAUSEA. WILL CONTINUE TO MONITOR
[2019-11-24 04:00] VITALS: BP 168/97
[2019-11-24 05:33] LABS: BASOPHILS 0.2 % (0-2); EOSINOPHILS 0.7 % (0-7); HEMATOCRIT 47.6 % (42.0-54.0); HEMOGLOBIN 16.8 g/dL (13.5-17.5); IMMATURE GRANULOCYTES 0.4 % (0-5); LYMPHOCYTES 21.9 % (15-50); MCH 32.1 pg (26.0-34.0); MCHC 35.3 g/dL (31.0-37.0); MEAN PLATELET VOLUME 10.3 fL (7.4-10.4); MONOCYTES 6.8 % (2-11); PLATELET COUNT 220 10x3/uL (130-400); RBC 5.23 10x6/uL (4.20-6.10); RDW 11.9 % (11.5-14.5); WBC 9.5 10x3/uL (4.8-10.8)
[2019-11-24 05:56] LABS: ALBUMIN 3.3 g/dL (3.4-5.0); ALKALINE PHOSPHATASE 73 U/L (30-120); ALT (SGPT) 22 U/L (10-68); BILIRUBIN - TOTAL 2.01 mg/dL (0.2-1.3); CALC OSMOLALITY 272 mosm/kg (275-300); CALCIUM 8.3 mg/dL (8.5-10.1); CARBON DIOXIDE 25.7 mmol/L (21.0-32.0); CHLORIDE - SERUM 99 mmol/L (98-107); CREATININE - SERUM 0.9 mg/dL (0.6-1.3); GLUCOSE 164 mg/dL (74-106); MAGNESIUM - SERUM 1.9 mg/dL (1.8-2.4); POTASSIUM - SERUM 3.4 mmol/L (3.5-5.1); PROTEIN - SERUM 6.9 g/dL (6.4-8.2); SODIUM 135 mmol/L (136-145); UREA NITROGEN 11 mg/dL (7-18); eGFR NON AFRICAN AMERICAN > 90 mL/min (90-120)
--- NOTE | 2019-11-24 06:22 | NUR ---
I have reviewed this patient and I concur with the Shift Assessment completed by the Licensed Practical Nurse today this shift.
--- NOTE | 2019-11-24 07:49 | NUR ---
ALERT AND ORIENTED. LUNG SOUNDS DIMINISHED TO LLL. HEART SOUNDS S1 AND S2 HEARD IN ALL [place]. BOWEL SOUNDS ACTIVE X 4. IV TO LFA PATENT WITHOUT REDNESS. DENIES NEEDS. BED LOW. CALL FISCHER AND PERSONAL ITESM IN REACH. WILL CONTINUE TO MONITOR.
[2019-11-24 08:36] VITALS: Ht 180.3 cm; Wt 85.9 kg
[2019-11-24 09:00] VITALS: BP 164/71
--- NOTE | 2019-11-24 10:09 | NUR ---
RESTING IN BED. DENIES NEEDS. WILL CONTINUE TO MONITOR.
[2019-11-24 11:00] VITALS: BP 121/82
--- NOTE | 2019-11-24 18:56 | NUR ---
PATIENT FOUND IN ROOM ON FLOOR. DR BLACKWELL ON PHONE MADE AWARE. KENDAL ROWELL PAGED FOR ORDERS. PATIENT VERY DIZZY AND CONFUSED. DR KRAMER ON FLOOR AWARE. DR BLACKWELL TO COME SEE PATIENT. FALL PRECAUTIONS NOW IN PLACE.
--- NOTE | 2019-11-24 19:00 | NUR ---
SPOKE WITH PHARMACY TO GET ORDERS PLACED FOR MANNITOL AND LASIX PER DR KRAMER. ARELIS IN PHARMACY STATES WILL PLACE ORDERS.
--- NOTE | 2019-11-24 20:23 | NUR ---
PT LYING IN BED AWAKE AND ALERT DOES SHOW SIGNS OF CONFUSION. PT ALERT TO NAME AND CAN ANSWER SOME QUESTIONS. IS AT BEDSIDE. BED ALARM ON AND ACTIVE. BLANKET AND WATER PROVIDED PER PT REQUEST. WILL TRANSFER PT PER SORIN VAUGHN APRN. CALL LIGHT AND OTHER PERSONAL ITEMS WITH IN REACH. KEIKO CONTINUE TO MONITOR
[2019-11-24 20:57] VITALS: BP 186/102
--- NOTE | 2019-11-24 22:20 | NUR ---
ASSIST WITH TRANSFER TO ICU 2306. GAVE REPORT TO AUGUST SIDHU. PT TOLERATED WELL.
[2019-11-25] VITALS (42 sets, daily range): BP systolic 117–176; BP diastolic 66–94
--- NOTE | 2019-11-25 02:30 | NUR ---
REC'D PT FROM ICU TO CV01, PT AWAKE AND ALERT, MONITORS HOOKED UP AND WORKING, VSS, CALL LIGHT WITHIN REACH, SEE FLOW SHEET FOR FURTHER DETAILS. WILL CONTINUE TO OBSERVE.
--- NOTE | 2019-11-25 05:00 | NUR ---
PT LYING DOWN IN BED RESTING, MONITORS ON AND WORKING, VSS, CALL LIGHT WITHIN REACH, WILL CONTINUE TO OBSERVE.
[2019-11-25 06:24] LABS: BASOPHILS 0.2 % (0-2); EOSINOPHILS 0.1 % (0-7); HEMOGLOBIN 16.8 g/dL (13.5-17.5); IMMATURE GRANULOCYTES 0.3 % (0-5); LYMPHOCYTES 23.7 % (15-50); MCH 31.5 pg (26.0-34.0); MCV 90.1 fL (80.0-100.0); MEAN PLATELET VOLUME 10.3 fL (7.4-10.4); NEUTROPHILS 68.7 % (40-80); PLATELET COUNT 259 10x3/uL (130-400); RBC 5.33 10x6/uL (4.20-6.10); RDW 11.9 % (11.5-14.5); WBC 11.2 10x3/uL (4.8-10.8)
[2019-11-25 06:27] LABS: ALBUMIN 3.4 g/dL (3.4-5.0); ALKALINE PHOSPHATASE 77 U/L (30-120); BILIRUBIN - TOTAL 2.31 mg/dL (0.2-1.3); CALCIUM 8.7 mg/dL (8.5-10.1); CARBON DIOXIDE 25.7 mmol/L (21.0-32.0); CHLORIDE - SERUM 96 mmol/L (98-107); CREATININE - SERUM 0.9 mg/dL (0.6-1.3); MAGNESIUM - SERUM 2.1 mg/dL (1.8-2.4); POTASSIUM - SERUM 3.4 mmol/L (3.5-5.1); PROTEIN - SERUM 7.1 g/dL (6.4-8.2); SODIUM 132 mmol/L (136-145); UREA NITROGEN 13 mg/dL (7-18); eGFR NON AFRICAN AMERICAN > 90 mL/min (90-120)
[2019-11-25 06:32] LABS: ALT (SGPT) 28 U/L (10-68); CALC OSMOLALITY 271 mosm/kg (275-300); GLUCOSE 233 mg/dL (74-106)
--- NOTE | 2019-11-25 07:06 | NUR ---
0700 BEDSIDE REPORT COMPLETE CONSENTS SIGNED ANESTHESIA AT BEDSIDE SPOUSE AT BEDSIDE STAT TYPE AND CROSS ORDERED
--- NOTE | 2019-11-25 07:40 | NUR ---
0720 SERUM K+ 3.4 STARTED K RIDERS PER PROTOCOL INFORMED ANESTHESIA DR HEWITT OF REPLACEMENT K+ RIDERS
--- NOTE | 2019-11-25 07:50 | NUR ---
0757 DR HEWITT PRESENT TO TRANSFER TO OR
--- NOTE | 2019-11-25 10:15 | NUR ---
Nutrition Follow-up: NPO for R suboccipital craniotomy for cerebellar mass. Wt: 184# (11/23); 210# (11/19 - stated) Last recorded BM: 11/19 Labs noted: Na 132, K+ 3.4, Glu 233 Meds noted: Lasix, Phenergan, Protonix, Lantus, Humalog, NS @ 100, electrolyte protocol -Rec resume diet when medically feasible. -Monitor wt. -RD following.
--- NOTE | 2019-11-25 10:25 | NUR ---
1050 ARRIVED FROM OR WITH NO NOTICE TO NURSE NOR RT CALLED RESP, TEVIN TO BRING VENT PATIENT WAS BEING BAGGED. LEFT RADIAL ART LINE NOTED AND ZEROED, LEFT SC INTACT, NOTIFIED RADIOLOOGY FOR STAT CXR, CBS 265 NEW ORDER FOR PROPOFOL PER DR HEWITT, DR HEWITT S RESTARTED NEOSYNEPHRINE AT 0.1MCG/KG/MIN OR 2.5 ML/HR, RESTARTED POTASSIUM REPLACEMENT RIDERS PER ELECTROLYTE PROTOCOL. ASSESSMENT COMPLETE SMALL INCISION BEHIND RIGHT EAR WITH ROSCOE DRAIN NOTED
--- NOTE | 2019-11-25 19:00 | NUR ---
SHIFT ASSESSMENT COMPLETED. PT CARE ASSUMED. MONITORS ON AND WORKING, VENT SETTINGS NOTED. MIGUEL STAT LOCKED IN PLACE. ROSCOE DRAIN NOTED TO RIGHT OCCIPITAL. PT SEDATED, FOLLOWS COMMANDS. SEE FLOW SHEET FOR FURTHER DETAILS. WILL CONTINUE TO OBSERVE.
--- NOTE | 2019-11-25 21:00 | NUR ---
PT TURNED AND REPOSITIONED FOR COMFORT. MONITORS ON AND WORKING, VSS. WILL CONTINUE TO OBSERVE.
--- NOTE | 2019-11-25 23:00 | NUR ---
PT TURNED AND REPOSITIONED FOR COMFORT, MONITORS ON AND WORKING, VSS. SEE FLOW SHEET FOR FURTHER DETAILS. WILL CONTINUE TO OBSERVE.
[2019-11-26] VITALS (24 sets, daily range): BP systolic 94–143; BP diastolic 53–93
--- NOTE | 2019-11-26 01:00 | NUR ---
PT TURNED AND REPOSITIONED FOR COMFORT, MONITORS ON AND WORKING, VSS, WILL CONTINUE TO OBSERVE.
--- NOTE | 2019-11-26 03:00 | NUR ---
PT LYING IN BED RESTING, MONITORS ON AND WORKING, VSS, SEE FLOW SHEET FOR FURTHER DETAILS. WILL CONTINUE TO OBSERVE.
--- NOTE | 2019-11-26 07:05 | NUR ---
SHIFT REPORT RECEIVED. INTUBATED AND SEDATED. OPEN EYES AND FOLLOWS SIMPLE COMMANDS. VENT SETTINGS AC, R-12, TV 600, FIO2 30%, PEEP 2. ETT 8.5 23 AT LIP. L-SUBCLAVIAN CVL WITH PROPOFOL AT 20MCG/KG/MIN AND NS AT 75ML/HR. PIV TO L- FOREARM SL. L RADIAL YESY. HAS INCISION TO RIGHT SIDE OF HEAD WITH ROSCOE DRAIN IN PLACE. MIGUEL CATHETER IN PLACE WITH YELLOW URINE NOTED. WRIST RESTRAINTS IN PLACE PER ORDER. SEE FLOWSHEET FOR FULL ASSESSMENT. SAFETY MEASURES IN PLACE. WILL CONTINUE TO MONITOR.
[2019-11-26 07:42] LABS: BASOPHILS 0 % (0-2); EOSINOPHILS 0 % (0-7); HEMATOCRIT 47.6 % (42.0-54.0); HEMOGLOBIN 16.5 g/dL (13.5-17.5); IMMATURE GRANULOCYTES 0.3 % (0-5); LYMPHOCYTES 7.3 % (15-50); MCH 31.7 pg (26.0-34.0); MCHC 34.7 g/dL (31.0-37.0); MCV 91.4 fL (80.0-100.0); MEAN PLATELET VOLUME 10.1 fL (7.4-10.4); MONOCYTES 5.3 % (2-11); NEUTROPHILS 87.1 % (40-80); PLATELET COUNT 264 10x3/uL (130-400); RBC 5.21 10x6/uL (4.20-6.10); RDW 12.1 % (11.5-14.5)
[2019-11-26 07:56] LABS: ALBUMIN 3.2 g/dL (3.4-5.0); BILIRUBIN - TOTAL 1.72 mg/dL (0.2-1.3); CALCIUM 8.9 mg/dL (8.5-10.1); CARBON DIOXIDE 25.2 mmol/L (21.0-32.0); CREATININE - SERUM 1.3 mg/dL (0.6-1.3); PHOSPHOROUS 5.3 mg/dL (2.5-4.9); POTASSIUM - SERUM 4.2 mmol/L (3.5-5.1); PROTEIN - SERUM 7.2 g/dL (6.4-8.2)
--- NOTE | 2019-11-26 07:57 | NUR ---
ABG RESULTS CALLED TO DR. EDMOND. NO NEW ORDERS RECEIVED AT THIS TIME. PT RESTING COMFORTABLY. WILL CONTINUE TO MONITOR.
--- NOTE | 2019-11-26 09:38 | NUR ---
SEDATION OFF AT THIS TIME. PLACED ON CPAP TRIAL.
--- NOTE | 2019-11-26 12:11 | NUR ---
DR. BLACKWELL CAME BY TO SEE PT. HOLD PLAVIX AND ASPIRIN. NOTIFY IF BP IS >150.
--- NOTE | 2019-11-26 17:35 | NUR ---
SPOUSE AT BEDSIDE. SANDWICH TRAY PROVIDED. PT ATE ABOUT 90%. SPOUSE BROUGHT PT DIET MT. SHEPPARD. BATH SET UP. SPOUSE WILL ASSIST PT WITH BATH.
--- NOTE | 2019-11-26 19:00 | NUR ---
SHIFT ASSESSMENT COMPLETED. PT CARE ASSUMED. MONITORS ON AND WORKING, VSS, PT AAO, DENIES ANY COMPLAINT OF PAIN. CALL LIGHT WITHIN REACH, ROSCOE DRAIN NOTED TO RIGHT OCCIPITAL. SEE FLOW SHEET FOR FURTHER DETAILS. WILL CONTINUE TO OBSERVE.
--- NOTE | 2019-11-26 21:00 | NUR ---
PT LYING IN BED RESTING, TAKES PO MEDS WITHOUT ANY DIFFICULTY, PT AAO. DENIES ANY COMPLAINT OF PAIN OR DISCOMFORT AT THIS TIME, CALL LIGHT WITHIN REACH, WILL CONTINUE TO OBSERVE.
--- NOTE | 2019-11-26 23:00 | NUR ---
NO CHANGES, MONITORS ON AND WORKING, VSS, CALL LIGHT WITHIN REACH, WILL CONTINUE TO OBSERVE. SEE FLOW SHEET FOR FURTHER DETAILS. WILL CONTINUE TO OBSERVE.
[2019-11-27] VITALS (24 sets, daily range): BP systolic 98–142; BP diastolic 53–83
--- NOTE | 2019-11-27 01:00 | NUR ---
PT RESTING, MONITORS ON AND WORKING, VSS, CALL LIGHT WITHIN REACH, WILL CONTINUE TO OBSERVE.
--- NOTE | 2019-11-27 03:00 | NUR ---
PT LYING IN BED RESTING. MONITORS ON AND WORKING, VSS. CALL LIGHT WITHIN REACH SEE FLOW SHEET FOR FURTHER DETAILS. WILL CONTINUE TO OBSERVE.
--- NOTE | 2019-11-27 08:51 | NUR ---
IMDUR AND LISINOPRIL HELD THIS AM DUE TO PARAMETERS AND BP VALUES. REPORTED TO DR STEVENS.
--- NOTE | 2019-11-27 10:16 | NUR ---
Nutrition Follow-up: POD 2 craniotomy with tumor removal. Reports eating eggs this AM. Mild nausea without vomiting. Diet: Diabetic WT: 189.2# (11/24) Last BM: 11/19 Labs noted: Glu 185 Meds noted: Lasix, Lantus, Humalog, Protonix, NS @ 75, electrolyte protocol -Encourage PO intake and honor food preferences within diet restrictions. -Monitor wt. -RD following.
--- NOTE | 2019-11-27 18:11 | NUR ---
DR KRAMER HERE ON ROUNDS. PT C/O NAUSEA. ZOFRAN GIVEN.
--- NOTE | 2019-11-27 19:00 | NUR ---
RECIVED BEDSIDE SHIFT REPORT AT BEDSIDE. PT IS RESTING IN BED WITH EYES CLOSED. HE AWAKES EAISILY AND IS A&OX4. HIS VSS. VOICES"NO" TO ANY PAIN AT THIS TIME. FULL ASSESSMENT DONE AND WILL DOC IN FLOWSHEET. HE RECIVED ZOFRAN RECENTLY AND HE HAS NO N/V AT THIS TIME. HE MOVES HISSELFT INDEPENDENTLY AND VOICES ORIENTATION TO THE CALL LIGHT. HIS BED IS LEFT LOW,SIDE RIAX2,CALL LIGHT WITHIN REACH. WILL CONINTUE TO MONITOR
--- NOTE | 2019-11-27 20:38 | NUR ---
PT IS RESTING IN BED WITH EYES CLOSED. AWAKES EAISLY. JUST ADMINSITERED SCHEDULED MEDS. BLOOD SUGAR WAS 196. HUMALOG GIVEN, SEE MAR. HE VOICES"NO" TO PAIN OR NEEDS AT THIS TIME. VSS. BED IS LOW,SIDE RAISLX2,CALL VAUGHN BHAGAT. WILL CONITNUE TO MONITOR
--- NOTE | 2019-11-27 21:30 | NUR ---
PT IS RESTING IN BED WITH EYES CLOSED. VSS. RR ARE REGULAR AND UNLABORED. BED IS LOW,SIDE RIALSX2,CALL LIGHT WTIHIN REACH. WILL CONINTUE TO MONITOR
--- NOTE | 2019-11-27 22:26 | NUR ---
PT IS RESTING IN BED ON RIGHT SIDE. VSS. HE AWAKES EAISLY. I ASKED HIM IF HE WAS HAVING ANY PAIN BECAUSE HE IS DUE FOR A PAIN PILL HE VOICED"YES PLEASE". RATES PAIN "6/10 ON THE BACK OF MY HEAD". NO OTHER C/O OR NEEDS VOICED. BED IS LOW,SIDE RAISLX2,CALL LIGHT WTIHIN REACH. WILL CONTINUE TO MONITOR
--- NOTE | 2019-11-27 23:24 | NUR ---
PAIN REASSESSMENT DONE. PT IS RESTING WITH EYES CLOSED. VSS. RE-ASSESSMETN DONE AND WILL DOC IN FLOW SHEET. NO NEEDS VOICED. BED IS LOW, SIDE RIASLX2,CALL LIGHT WITHIN REACH. WILL CONTINUE TO MONITOR
[2019-11-28] VITALS (24 sets, daily range): BP systolic 99–144; BP diastolic 52–93
--- NOTE | 2019-11-28 00:42 | NUR ---
PT IS RESTING IN BED WITH EYES CLOSED. VSS. BED IS LOW,SIDE RAISLX2,CALL LIGHT WTIHIN REACH. WILL CONTINUE TO MONITOR
--- NOTE | 2019-11-28 03:12 | NUR ---
PT IS RESTING ON LEFT SIDE WITH EYES CLOSED. VSS. AWAKESN EASILY. IS A&OX4, VOICES"IM GOOD". NO C/O. MANNITOL SCANNED AND STARTED PER SCHEDULED ORDER. TUBEING CHANGED AND FILTER TUBING USED. RE-ASSESSMENT PERFORMED AND WILL DOC IN FLOWSHEET. BED IS LEFT LOW,SIDE RAISX2,CALL LIGHT WITHIN REACH. WILL CONINTUE TO MONITOR
--- NOTE | 2019-11-28 05:11 | NUR ---
PT WAS RESTING IN BED, AWAKENS EASILY. I ASKED HIM IF HE HAS ANY PAIN. VOCALIZED "YES A INGRAM ABOUT A 5/10". SO SCANNED AND ADMINISTERED PAIN MED PER ORDER FOR PRN. ALSO CHANGED HEAD DRESSING DUE TO SMALL AMOUNT OF DRAINAGE AND BANDAGE COMMING OFF. INCISON IS CDI, NO S/S OF BLEEDING OR INFECTION. NEW DRESSING APPLIED. PT TOLERATED WELL. ROSCOE DRAIN HAS 10ML OF SEROSANGUANOUS FLUID. DRAINED. NO OTHER NEEDS WERE VOICED AT THIS TIME. BED IS LEFT LOW,SIDE RAISLX2,CALL LIGHT WITHIN REACH. WILL CONTINUE TO MONITOR
[2019-11-28 05:46] LABS: BASOPHILS 0.2 % (0-2); EOSINOPHILS 0.3 % (0-7); HEMATOCRIT 45.8 % (42.0-54.0); IMMATURE GRANULOCYTES 0.4 % (0-5); LYMPHOCYTES 14.5 % (15-50); MCH 32.1 pg (26.0-34.0); MCHC 34.9 g/dL (31.0-37.0); MCV 91.8 fL (80.0-100.0); MEAN PLATELET VOLUME 10.2 fL (7.4-10.4); MONOCYTES 9.6 % (2-11); PLATELET COUNT 243 10x3/uL (130-400); RBC 4.99 10x6/uL (4.20-6.10); WBC 12.6 10x3/uL (4.8-10.8)
[2019-11-28 06:01] LABS: ALBUMIN 2.7 g/dL (3.4-5.0); BILIRUBIN - TOTAL 1.9 mg/dL (0.2-1.3); CALCIUM 8.2 mg/dL (8.5-10.1); CARBON DIOXIDE 30.5 mmol/L (21.0-32.0); CREATININE - SERUM 1.2 mg/dL (0.6-1.3); MAGNESIUM - SERUM 1.9 mg/dL (1.8-2.4); PROTEIN - SERUM 6.8 g/dL (6.4-8.2)
[2019-11-28 06:05] LABS: ANION GAP 10.8 mmol/L (8-16); PHOSPHOROUS 3.5 mg/dL (2.5-4.9); POTASSIUM - SERUM 3.3 mmol/L (3.5-5.1)
--- NOTE | 2019-11-28 06:56 | NUR ---
PT IS RESTING IN BED RESTING. VSS. HE VOICES NO NEEDS OR C/O AT THIS TIME. JUST ADMINISTERED 40MEQ OF POTASSIUM PO PER LYTE PROTOCOL. BED IS LEFT LOW,SIDE RIALSX2,CALL LIGHT WITHIN REACH.
--- NOTE | 2019-11-28 09:36 | NUR ---
ASST PT TO SIT ON SIDE OF BED. PT WITH N&V. ZOFRAN GIVEN AND ASST BACK TO BED PER PTS WISHES. AT BS.
--- NOTE | 2019-11-28 10:38 | NUR ---
DR STEVENS HERE. HELD LISINIPRIL AND IMDUR AND REPORTED TO DR STEVENS.
--- NOTE | 2019-11-28 13:05 | NUR ---
AT BS. PT EATING LUNCH WITH OUT N&V.
--- NOTE | 2019-11-28 13:28 | NUR ---
DR EDMOND HERE ON ROUNDS.
--- NOTE | 2019-11-28 17:26 | NUR ---
AT BS ASSISTING PT WITH MEAL. NO N&V AT PRESENT TIME.
--- NOTE | 2019-11-28 19:00 | NUR ---
PT ASSESSMENT COMPLETED AT THIS TIME, NO CHANGES NOTED FROM NURSE REPORT, PT AAOX3, PT DENIES PAIN OR DISTRESS AT THIS TIME. VSS, WILL MONITOR FOR CHANGES
--- NOTE | 2019-11-28 21:00 | NUR ---
PT RESTING IN BED WATCHING TV, PT DENIES DISTRESS OR DISCOMFORT AT THIS TIME
--- NOTE | 2019-11-28 23:00 | NUR ---
PT REASSESSMENT COMPLETED AT THIS TIME, NO CHANGES NOTED FROM PREVIOUS EXAM, VSS
[2019-11-29] VITALS (23 sets, daily range): BP systolic 107–143; BP diastolic 64–96
--- NOTE | 2019-11-29 01:00 | NUR ---
PT RESTING IN BED WITH EYES CLOSED, RESP EVEN AND NON-LABORED, NO DISTRESS NOTED AT THIS TIME
--- NOTE | 2019-11-29 03:00 | NUR ---
PT REASSESSMENT COMPLETED AT THIS TIME, NO CHANGES NOTED FROM PREVIOUS EXAM, VSS
--- NOTE | 2019-11-29 05:00 | NUR ---
PT RESTING WITH EYES CLOSED, RESP EVEN AND NONLABORED, VSS
[2019-11-29 06:07] LABS: HEMATOCRIT 47.4 % (42.0-54.0); HEMOGLOBIN 16.5 g/dL (13.5-17.5); LYMPHOCYTES 10.7 % (15-50); MCH 31.5 pg (26.0-34.0); MCHC 34.8 g/dL (31.0-37.0); MCV 90.6 fL (80.0-100.0); MEAN PLATELET VOLUME 9.7 fL (7.4-10.4); NEUTROPHILS 85.9 % (40-80); PLATELET COUNT 240 10x3/uL (130-400); RBC 5.23 10x6/uL (4.20-6.10); RDW 11.9 % (11.5-14.5); WBC 14.1 10x3/uL (4.8-10.8)
--- NOTE | 2019-11-29 06:15 | NUR ---
PT WAS ASSISTED UP TO THE BEDSIDE CHAIR, PT ADVISED THAT SHE DID NOT WANT A BATH THIS MORNING, THAT SHE WANTED TO WAIT UNTIL SHE GOT HOME.
[2019-11-29 06:22] LABS: ALBUMIN 2.8 g/dL (3.4-5.0); ANION GAP 9.8 mmol/L (8-16); BILIRUBIN - TOTAL 1.84 mg/dL (0.2-1.3); CALCIUM 8.4 mg/dL (8.5-10.1); CARBON DIOXIDE 29.5 mmol/L (21.0-32.0); CREATININE - SERUM 1.3 mg/dL (0.6-1.3); MAGNESIUM - SERUM 2.1 mg/dL (1.8-2.4); PHOSPHOROUS 3.2 mg/dL (2.5-4.9); POTASSIUM - SERUM 4.3 mmol/L (3.5-5.1); PROTEIN - SERUM 7.1 g/dL (6.4-8.2)
--- NOTE | 2019-11-29 12:50 | NUR ---
reports that pt is a little confused today and having double vision. assessment reveals that pt is oriented to orientation questions. yves and elbert. pt states double vision"a little, comes and goes. reported to dr resendiz. reviewed of bp and rec'd order to restart bp meds.
--- NOTE | 2019-11-29 14:36 | NUR ---
bath and linens changed. pt william well.
--- NOTE | 2019-11-29 19:00 | NUR ---
PT ASSESSMENT COMPLETED AT THIS TIME, NO CHANGES NOTED FROM NURSE REPORT, PT AAOX3, PT DENIES COMPLAINTS OR DISTRESS AT THIS TIME, VSS, WILL MONITIOR FOR CHANGES
--- NOTE | 2019-11-29 21:00 | NUR ---
PT RESTING IN BED WATCHING TV NO DISTRESS NOTED, VSS
--- NOTE | 2019-11-29 23:00 | NUR ---
PT REASSESSMENT COMPLETED AT THIS TIME, NO CHANGES NOTED FROM PREVIOUS EXAM, VSS
[2019-11-30] VITALS (26 sets, daily range): BP systolic 97–126; BP diastolic 39–85
--- NOTE | 2019-11-30 01:00 | NUR ---
PT RESTING WITH EYES CLOSED RESP EVEN AND NON LABORED, VSS
--- NOTE | 2019-11-30 03:00 | NUR ---
PT REASSESSMENT COMPLETED AT THIS TIME, NO CHANGES NOTED FROM PREVIOUS EXAM, VSS
--- NOTE | 2019-11-30 05:00 | NUR ---
PT RESTING WITH EYES CLOSED, RESP EVEN AND NON-LABORED, VSS
[2019-11-30 06:31] LABS: HEMATOCRIT 45.8 % (42.0-54.0); HEMOGLOBIN 15.8 g/dL (13.5-17.5); LYMPHOCYTES 10.8 % (15-50); MCH 31.7 pg (26.0-34.0); MCHC 34.5 g/dL (31.0-37.0); MCV 91.8 fL (80.0-100.0); MEAN PLATELET VOLUME 9.8 fL (7.4-10.4); NEUTROPHILS 83.8 % (40-80); PLATELET COUNT 266 10x3/uL (130-400); RBC 4.99 10x6/uL (4.20-6.10); RDW 11.7 % (11.5-14.5); WBC 14.4 10x3/uL (4.8-10.8)
[2019-11-30 06:42] LABS: ALBUMIN 2.6 g/dL (3.4-5.0); BILIRUBIN - TOTAL 1.19 mg/dL (0.2-1.3); CALCIUM 8.6 mg/dL (8.5-10.1); CARBON DIOXIDE 29.3 mmol/L (21.0-32.0); CREATININE - SERUM 1.3 mg/dL (0.6-1.3); MAGNESIUM - SERUM 2.1 mg/dL (1.8-2.4); PHOSPHOROUS 3.4 mg/dL (2.5-4.9); POTASSIUM - SERUM 4.3 mmol/L (3.5-5.1); PROTEIN - SERUM 6.9 g/dL (6.4-8.2)
--- NOTE | 2019-11-30 09:09 | NUR ---
DR. RINALDI AT BEDSIDE. ZESTRIL AND IMDUR ON HOLD PER DR. RINALDI. OKAY TO HAVE FREE WATER. SPOUSE AT BEDSIDE. NO FURTHER NEEDS AT THIS TIME. WILL CONTINUE TO MONITOR.
--- NOTE | 2019-11-30 09:39 | NUR ---
NAUSEA REPORTED. ZOFRAN GIVEN PER ORDERS. PAIN 5/10 ON HEAD AT INCISION SITE. NORCO GIVEN PER ORDERS. NO FURTHER NEEDS. WILL CONTINUE TO MONITOR.
--- NOTE | 2019-11-30 12:28 | NUR ---
PT HAS NOT BEEN RUNNING FEVER. WRONG TEMPERATURE CHARTED.
--- NOTE | 2019-11-30 12:29 | NUR ---
Nutrition Follow-up: POD 5 craniotomy. Nursing reports pt ate some breakfast but continues to c/o nausea. Diet: Diabetic PO intake: 65% avg x 6 meals Wt: 192.9# (11/29); 189.2# (11/24) Last recorded BM: 11/19 Labs noted: Na 131, Glu 197, Alb 2.6 Meds noted: NS @ 75, Lasix, Protonix, Lantus, Humalog, Zofran, electrolyte protocol -Encourage PO intake and honor food preferences within diet restrictions. -Offer Glucerna with meals. -Rec consider increased bowel regimen to encourage BM regularity. -Monitor wt. -RD following.
--- NOTE | 2019-11-30 19:00 | NUR ---
REPORT RECEIVED. PT RESTING IN BED, NO ACUTE DISTRESS NOTED. ASSESSMENT COMPLETED, SEE FLOWSHEET. ROSCOE DRAIN X1, COMPRESSED. LT SUBCLAVIAN CVL INFUSING, SEE IV FLOWSHEET. WILL CONTINUE TO MONITOR.
--- NOTE | 2019-11-30 19:58 | NUR ---
1400-RECIEVED PT -HOB ELEVATED 30 DEGREES-RESTING -MIGUEL CATH IN PLACE 1630-PT MOVED SELF FOR EASIER ACCESS TO TRAY-WAY- 1700- AT BEDSIDE TO ASSIST PT WITH DINER TRAY 1729-ADDITIONAL TURKEY SANDWICH BROUGHT FOR PT 1944-ICECREAM BROUGHT AT PT REQUEST
--- NOTE | 2019-11-30 21:00 | NUR ---
PT AT BEDSIDE, PT SITTING UP IN BED. WILL CONTINUE TO MONITOR.
--- NOTE | 2019-11-30 21:00 | NUR ---
PT RESTING IN BED, NO ACUTE DISTRESS NOTED.
--- NOTE | 2019-11-30 23:00 | NUR ---
REASSESSMENT COMPLETED, SEE FLOWSHEET. PT REPORTS INTERMITTENT PAIN IN CHEST, PRN MEDICATION ADMINISTERED. WILL CONTINUE TO MONITOR.
--- NOTE | 2019-11-30 23:00 | NUR ---
REASSESSMENT COMPLETED, SEE FLOWSHEET. PT C/O HEADACHE, PRN MEDICATION ADMINISTERED.
[2019-12-01] VITALS (23 sets, daily range): BP systolic 109–135; BP diastolic 71–93
--- NOTE | 2019-12-01 01:00 | NUR ---
PT RESTING IN BED, NO ACUTE DISTRESS NOTED.
--- NOTE | 2019-12-01 03:00 | NUR ---
REASSESSMENT COMPLETED, SEE FLOWSHEET. NO ACUTE DISTRESS NOTED.
--- NOTE | 2019-12-01 05:00 | NUR ---
PT RESTING QUIETLY IN BED, WILL CONTINUE TO MONITOR.
[2019-12-01 05:53] LABS: ALBUMIN 2.6 g/dL (3.4-5.0); BILIRUBIN - TOTAL 1.14 mg/dL (0.2-1.3); CALCIUM 8.6 mg/dL (8.5-10.1); CARBON DIOXIDE 28.8 mmol/L (21.0-32.0); CREATININE - SERUM 1.3 mg/dL (0.6-1.3); MAGNESIUM - SERUM 1.9 mg/dL (1.8-2.4); PHOSPHOROUS 4.5 mg/dL (2.5-4.9); POTASSIUM - SERUM 3.8 mmol/L (3.5-5.1); PROTEIN - SERUM 6.7 g/dL (6.4-8.2)
--- NOTE | 2019-12-01 07:33 | NUR ---
SHIFT REPORT RECEIVED. PT RESTING ON RIGHT SIDE. ON ROOM AIR. REPORTS HEADACHE 5/. HAS DRESSING TO BACK OF HEAD. SMALL AMOUNT OF DRAINAGE NOTED. ROSCOE DRAIN IN PLACE. L-SUBCLAVIAN CVL WITH NS AT 75ML/HR. MIGUEL CATHETER IN PLACE WITH CLEAR YELLOW URINE NOTED. SAFETY MEASURE IN PLACE. WILL CONTINUE TO MONITOR.
[2019-12-01 08:33] LABS: HEMATOCRIT 46.7 % (42.0-54.0); LYMPHOCYTES 17.4 % (15-50); MCH 31.6 pg (26.0-34.0); MCHC 34.3 g/dL (31.0-37.0); MCV 92.3 fL (80.0-100.0); MEAN PLATELET VOLUME 10.2 fL (7.4-10.4); NEUTROPHILS 77.8 % (40-80); PLATELET COUNT 272 10x3/uL (130-400); RBC 5.06 10x6/uL (4.20-6.10); WBC 14.1 10x3/uL (4.8-10.8)
--- NOTE | 2019-12-01 09:01 | NUR ---
ROSCOE DRAIN DC'D AT THIS TIME PER ORDER. PT TOLERATED WELL. DRESSING APPLIED TO BACK OF HEAD. INCISION C/D/I. NO REDNESS NOTED. NO FURTHER NEEDS AT THIS TIME. WILL CONTINUE TO MONITOR.
--- NOTE | 2019-12-01 11:00 | NUR ---
RESTING IN BED AT THIS TIME. VSS. RATES PAIN 08/27. NO FEVER NOTED. DRESSING C/D/I. DENIES FURTHER NEEDS AT THIS TIME. WILL CONTINUE TO MONITOR.
--- NOTE | 2019-12-01 13:39 | NUR ---
BATH OFFERED AT THIS TIME. PT REFUSED. HE SAID HE WANTED TO WAIT FOR HIS TO VISIT SO SHE COULD HELP HIM. RESTING COMFORTALBY. WILL CONTINUE TO MONITOR.
--- NOTE | 2019-12-01 17:00 | NUR ---
MEAL TRAY DELIVERED. SPOUSE AT BEDSIDE. DENIES OTHER NEEDS AT THIS TIME.
--- NOTE | 2019-12-01 19:30 | NUR ---
SHIFT ASSESSMENT COMPLETE. PATIENT C/O OF DIZZINESS AND RECEIVED IN REPORT THAT PHYSICIAN IS AWARE.
--- NOTE | 2019-12-01 21:38 | NUR ---
MEDS GIVEN PER MD ORDER. PATIENT DENIES ANY NEEDS AT THIS TIME. CALL LIGHT WITHIN REACH, BED IN LOW POSITION, AND WILL CONTINUE TO MONITOR. PATIENT STATES HE IS STILL HAVING SOME DIZZINESS.
--- NOTE | 2019-12-01 21:44 | MORECARE ---
CASE MANAGEMENT DISCHARGE SUMMARY PATIENT: KRISH DIOP UNIT: [id number] ADM DATE: 11/20/19 AGE: 54 : 61 SEX: M ROOM/BED: [facility] AUTHOR: AYO CHANDLER PHYSICIAN: REFERRING PHYSICIAN: JOSEPH BLANCO MD DATE OF SERVICE: 12/01/19 Discharge Plan Patient Name: KRISH DIOP Facility: [facility]:[place] : 1965 Planned Disposition: Anticipated Discharge Date: Discharge Date: Expected LOS: Initial Reviewer: [email or web address] Initial Review Date: 11/20/2019 Generated: 12/01/19 10:43 pm Patient Name: KRISH DIOP Page [id number] at 2144 All edits/amendments must be made on the electronic document DICTATION DATE: 12/01/192142 FRYER OPERATOR: CARMINE 12/01/192142 RPT#: [id number] DC DATE: STATUS: ADM IN [facility] [address] [place] [address] END OF REPORT
--- NOTE | 2019-12-01 22:26 | NUR ---
PATIENT C/O OF NAUSEA. ZOFRAN GIVEN PER ORDER AND WET CLOTH GIVEN. IV INTACT AND PATIENT. CALL LIGHT WITHIN REACH, BED IN LOW POSITION, AND WILL CONTINUE TO MONITOR.
--- NOTE | 2019-12-01 22:32 | MORECARE ---
CASE MANAGEMENT DISCHARGE SUMMARY PATIENT: KRISH DIOP UNIT: [id number] ADM DATE: 11/20/19 AGE: 54 : 61 SEX: M [facility] AUTHOR: GERALDINE,DOC PHYSICIAN: REFERRING PHYSICIAN: JOSEPH BLANCO MD DATE OF SERVICE: 12/01/19 Discharge Plan Patient Name: KRISH DIOP Facility: [facility]:[place] : 1965 Planned Disposition: Anticipated Discharge Date: Discharge Date: Expected LOS: Initial Reviewer: [email or web address] Initial Review Date: 11/20/2019 Generated: 12/01/19 11:32 pm Comments DCP- Discharge Planning Updated by [email or web address]: Carleen Mcintosh on 12/01/19 9:[address] Patient Name: KRISH DIOP Admission Status: ER Accout number: [id number] Admission Date: 11-20-2019 : 1965 Admission Diagnosis:NAUSEA WITH VOMITING, UNSPECIFIED Attending: JOSEPH BLANCO Current LOS: 11 Anticipated DC Date: Planned Disposition: Primary Insurance: [employer] [facility] Discharge Planning Comments: CM met with patient to complete initial dc planning assessment. CM educated patient on the CM role and verbal consent given by patient to complete assessment. Patient lives at home with family. Patient is independent. At discharge patient plans to return home and feels this is a safe discharge. CM discussed availability of home health, rehab services, and medical equipment. Patient will have family to transport home. Uncertain of discharge needs or disposition. Patient denied known discharge needs at this time. CM will continue to follow and will assist as needed with dc plans/needs. Underwriter Solicitation Director: Carleen Mcintosh DCPIA - Discharge Planning Initial Assessment Updated by [email or web address]: Carleen Mcintosh on 12/01/19 10:29 pm * Is the patient Alert and Oriented? Yes * How many steps to enter\exit or inside your home? * PCP IJEOMA * Pharmacy [facility] * Preadmission Environment Home with Family * ADLs Independent * Equipment None * List name and contact numbers for known caregivers / representatives who currently or will assist patient after discharge: DAMEON DIOP [facility] - [phone] * Verbal permission to speak to the caregivers and representatives has been obtained from the patient. Yes * Community resources currently utilized None * Additional services required to return to the preadmission environment? No * Can the patient safely return to the preadmission environment? Yes * Has this patient been hospitalized within the prior 30 days at any hospital? No Last DP export: 12/01/19 8:44 p Patient Name: KRISH DIOP Page [id number] at 2232 All edits/amendments must be made on the electronic document DICTATION DATE: 12/01/192231 OCCUPATIONAL HEALTH COORDINATOR: CARMINE 12/01/192231 RPT#: [id number] DC DATE: STATUS: ADM [facility] [address] [place] [address] END OF REPORT
--- NOTE | 2019-12-01 23:00 | NUR ---
REASSESSMENT COMPLETE WITH NO CHANGES FROM PREVIOUS ASSESMENT. CALL LIGHT WITHIN REACH, BED IN LOW POSITION, AND WILL CONTINUE TO MONITOR.
[2019-12-02] VITALS (13 sets, daily range): BP systolic 109–139; BP diastolic 81–96
--- NOTE | 2019-12-02 01:00 | NUR ---
PATIENT SLEEPING WITH NO SIGNS OF DISTRESS NOTED. CALL LIGHT WITHIN REACH, BED IN LOW POSITION, AND CALL LIGHT WITHIN REACH.
--- NOTE | 2019-12-02 03:00 | NUR ---
REASSESSMENT COMPLETE. NO CHANGES IN PATIENT CONDITION. CALL LIGHT WITHIN REACH, BED IN LOW POSITION, AND WILL CONTINUE TO MONITOR.
--- NOTE | 2019-12-02 06:10 | NUR ---
PATIENT DENIES DIZZINESS/NAUSEA AT THIS TIME. CALL LIGHT WITHIN REACH, BED IN LOW POSITION, AND WILL CONTINUE TO MONITOR.
[2019-12-02 06:46] LABS: HEMATOCRIT 47.8 % (42.0-54.0); HEMOGLOBIN 16.5 g/dL (13.5-17.5); LYMPHOCYTES 13.7 % (15-50); MCH 31.5 pg (26.0-34.0); MCHC 34.5 g/dL (31.0-37.0); MCV 91.4 fL (80.0-100.0); MEAN PLATELET VOLUME 9.6 fL (7.4-10.4); PLATELET COUNT 266 10x3/uL (130-400); RBC 5.23 10x6/uL (4.20-6.10); RDW 11.9 % (11.5-14.5); WBC 17.3 10x3/uL (4.8-10.8)
[2019-12-02 07:16] LABS: ALBUMIN 2.7 g/dL (3.4-5.0); ANION GAP 8.9 mmol/L (8-16); BILIRUBIN - TOTAL 1.3 mg/dL (0.2-1.3); CALCIUM 8.5 mg/dL (8.5-10.1); CARBON DIOXIDE 30.1 mmol/L (21.0-32.0); CREATININE - SERUM 1.2 mg/dL (0.6-1.3); PHOSPHOROUS 3.7 mg/dL (2.5-4.9)
--- NOTE | 2019-12-02 09:01 | NUR ---
OT NOTE: (DOS 12/01/2019) PT COMPLETED BUE AROM EXERCISES TOLERATED. PT COMPLETED SIDE ROLLING WITH SBA. PT COMPLETED FACE HYGIENE WITH SET UP. 530PM-554PM THANK YOU,AUBRIE ARREOLA
--- NOTE | 2019-12-02 10:15 | NUR ---
DR. RINALDI AT BEDSIDE. NOTIFIED OF DIZZY SPELL THAT PT HAD LAST NIGHT. NO NEW ORDERS RECEIVED AT THIS TIME.
--- NOTE | 2019-12-02 11:19 | NUR ---
Nutrition Follow-up: reports pt only ate a few bites of eggs this AM. Denies N/V. No BM since admit; +flatus. Declines Glucerna. Diet: Diabetic Wt: 189# (12/01); 192.9# (11/29); 189.2# (11/24) Labs noted: Na 130, Glu 187, Alb 2.7 Meds noted: Lasix, Protonix, Lantus, Humalog, Zofran, NS @ 75, electrolyte protocol -Encourage PO intake and honor food preferences within diet restrictions. -Monitor wt. -RD following.
--- NOTE | 2019-12-02 11:45 | NUR ---
L-SUBCLAVIAN CVL CHANGED PER ORDER. STERILE TECHNIQUE USED. PT RESTING COMFORTABLY. WILL COTNINUE TO MONITOR.
--- NOTE | 2019-12-02 11:56 | NUR ---
TRANSFERRED TO ROOM 2302 VIA BED. SPOUSE NOTIFIED. PERSONAL BELONGINGS SENT WITH PT.
--- NOTE | 2019-12-02 13:22 | NUR ---
Rehab Note- Acute Inpatient Rehab prescreen order received. The patient has [employer] insurance. Called [phone], spoke with Betina with & stated that the patient has a "Private Fee [employer]" plan & does not require a Prior Auth for any services. Will follow the patient at this time & when medically stable will accept to [facility] Acute Inpatient Rehab if in agreeance. Thank you for this referral! Leatha Remy RN Clinical Liaison, [facility] Rehab
--- NOTE | 2019-12-02 15:47 | NUR ---
RECEIVED PATIENT FROM ICU. ALERT AND ORIENTED. NO C/O PAIN. NO S/S OF ACUTE DISTRESS NOTED. IV LEFT CVL, NS INFUSING @ 75ML/HR. SITE PATENT WITHOUT REDNESS OR SWELLING. CELESTE TO HEAD, POST OP CRAINIOTOMY. DENIES ANY NEEDS AT THIS TIME. CALL LIGHT IN REACH. WILL CONTINUE TO MONITOR.
--- NOTE | 2019-12-02 17:58 | NUR ---
A&O RESTING IN BED WITH EYES OPEN. NO C/O PAIN. NO S/S OF ACUTE DISTRESS NOTED. FAMILY AT BEDSIDE. DENIES ANY NEEDS AT THIS TIME. CALL LIGHT IN REACH. WILL CONTINUE TO MONITOR.
[2019-12-03 04:00] VITALS: BP 130/88
--- NOTE | 2019-12-03 05:31 | NUR ---
I have reviewed this patient and I concur with the Shift Assessment completed by the Licensed Practical Nurse today this shift.
[2019-12-03 07:11] LABS: HEMATOCRIT 51.3 % (42.0-54.0); HEMOGLOBIN 17.6 g/dL (13.5-17.5); LYMPHOCYTES 19.2 % (15-50); MCH 31.4 pg (26.0-34.0); MCHC 34.3 g/dL (31.0-37.0); MCV 91.4 fL (80.0-100.0); MEAN PLATELET VOLUME 9.6 fL (7.4-10.4); NEUTROPHILS 73.9 % (40-80); PLATELET COUNT 282 10x3/uL (130-400); RBC 5.61 10x6/uL (4.20-6.10); RDW 12.1 % (11.5-14.5); WBC 14.1 10x3/uL (4.8-10.8)
[2019-12-03] MEDS ORDERED: FUROSEMIDE10 MG/M1 IV (07:49)
[2019-12-03] MEDS ORDERED: HUMALOG 30100 UNITS/ SC (07:49)
[2019-12-03] MEDS ORDERED: PROTONIX40 MG PO (07:49)
[2019-12-03] MEDS ORDERED: SCOPOLAMINE1 EACH TRANSDERM (07:49)
[2019-12-03] MEDS ORDERED: Xopenex 0.63 MG INH UPD (07:53)
--- NOTE | 2019-12-03 08:20 | NUR ---
PT RESTING IN BED WITH EYES CLOSED. EASILY AWAKENED WITH NAME CALLED. LEFT CVL IN PLACE TO LEFT CHEST WITH NS @ 75ML/HR INFUSING VIA PUMP. SITE WITHOUT REDNESS OR EDEMA. DRESSING C/D/I TO RIGHT POSTERIOR HEAD. SCD'S PLACED BILATERAL LOWER EXTREMITIES. AT BEDSIDE. DENIES FURTHER NEEDS AT THIS TIME. CL WITHIN REACH. ENCOURAGED TO CALL WITH NEEDS. CONTINUE POC
[2019-12-03 10:31] VITALS: BP 107/81
--- NOTE | 2019-12-03 11:56 | MORECARE ---
CASE MANAGEMENT DISCHARGE SUMMARY PATIENT: KRISH DIOP UNIT: [id number] ADM DATE: 11/20/19 AGE: 54 : 61 SEX: M ROOM/BED: D.2210 AUTHOR: GERALDINE,DOC PHYSICIAN: REFERRING PHYSICIAN: JOSEPH BLANCO MD DATE OF SERVICE: 12/03/19 Discharge Plan Patient Name: KRISH DIOP Facility: [facility]:[place] : 1965 Planned Disposition: Anticipated Discharge Date: Discharge Date: Expected LOS: Initial Reviewer: [email or web address] Initial Review Date: 11/20/2019 Generated: 12/03/19 12:55 pm Comments DCP- Discharge Planning Updated by [id number]: Delphine Cowan on 12/03/19 10:[address] SPOKE WITH FAMILY AND PATIENT ABOUT DC PLANS, THEY ARE BOTH AGREEABLE TO INPATIENT REHAB AT [facility]. KASIE SIGNED AND IMM GIVEN AND EXPLAINED. COPY PLACED IN CHART PATIENT WILL BE DISCHARGED TODAY TO INPATIENT REHAB DCP- Discharge Planning Updated by [id number]: Carleen Mcintosh on 12/01/19 9:[address] Patient Name: KRISH DIOP Admission Status: ER Accout number: [id number] Admission Date: 11-20-2019 : 1965 Admission Diagnosis:NAUSEA WITH VOMITING, UNSPECIFIED Attending: JOSEPH BLANCO Current LOS: 11 Anticipated DC Date: Planned Disposition: Primary Insurance: [employer] [facility] Discharge Planning Comments: CM met with patient to complete initial dc planning assessment. CM educated patient on the CM role and verbal consent given by patient to complete assessment. Patient lives at home with family. Patient is independent. At discharge patient plans to return home and feels this is a safe discharge. CM discussed availability of home health, rehab services, and medical equipment. Patient will have family to transport home. Uncertain of discharge needs or disposition. Patient denied known discharge needs at this time. CM will continue to follow and will assist as needed with dc plans/needs. Farrowing Worker: Carleen Mcintosh DCPIA - Discharge Planning Initial Assessment Updated by [email or web address]: Carleen Mcintosh on 12/01/19 10:29 pm * Is the patient Alert and Oriented? Yes * How many steps to enter\exit or inside your home? * PCP IJEOMA * Pharmacy [facility] * Preadmission Environment Home with Family * ADLs Independent * Equipment None * List name and contact numbers for known caregivers / representatives who currently or will assist patient after discharge: DAMEON DIOP - - [phone] * Verbal permission to speak to the caregivers and representatives has been obtained from the patient. Yes * Community resources currently utilized None * Additional services required to return to the preadmission environment? No * Can the patient safely return to the preadmission environment? Yes * Has this patient been hospitalized within the prior 30 days at any hospital? No Coverage Notice Reviewer: [email or web address] Dustin Cowan Notice Issued Date-Time: 12/03/2019 10:55 Notice Type: Patient Choice Letter Notice Delivered To: Family Member Relationship to Patient: Home Visitor Name: DAMEON DIOP Delivery Method: HAND - Hand Delivered Tegan Days: Prior Verbal Notification: Recipient Understood Notice: Yes Recipient Signature: Yes Med Rec Note Co-signed by Attending: Coverage Notice Comment: KASIE Reviewer: [id number] Cowan Notice Issued Date-Time: 12/03/2019 10:55 Notice Type: IM Discharge Notice Notice Delivered To: Patient Relationship to Patient: Home Visitor Name: DAMEON LIBBY Delivery Method: HAND - Hand Delivered Tegan Days: Prior Verbal Notification: Recipient Understood Notice: Yes Recipient Signature: Yes Med Rec Note Co-signed by Attending: Coverage Notice Comment: IMM WENT OVER ADMEON SIGNED PT VERBALIZED UNDERSTANDING Last DP export: 12/01/19 9:32 p Patient Name: KRISH DIOP Page [phone] at 1156 All edits/amendments must be made on the electronic document DICTATION DATE: 12/03/19 1155 SODA DISPENSER: CARMINE 12/03/19 1155 RPT#: [id number] DC DATE: STATUS: ADM IN [facility] [address] [place] [address] END OF REPORT
[2019-12-03] MEDS ORDERED: MEDROL DOSE PACK4 MG PO (12:21)
--- NOTE | 2019-12-03 12:24 | NUR ---
OT NOTE: PT DOING BETTER TODAY. PT ASLEEP BUT EASILY AWAKENED TO VOICE. BED MOB WITH MIN ASSIST. SITTING BALANCE ON EOB WAS GOOD. PT REPORTED THAT HE IS STILL DIZZY BUT NOT NAUSEOUS.. PT AND REPORTED THAT HE WAS ABLE TO EAT MORE BREAKFAST TODAY. SIT TO STAND WITH MIN/MOD ASSIST; ABLE TO AMB A FEW STEPS TO CHAIR WITH WALKER..TOLERATED SITTING UP IN CHAIR APPROX 45 MIN- 1 HR BEFORE HAVING TO LIE BACK DOWN.. BACK TO BED WITH MIN ASSIST; ABLE TO PERFORM SIT TO SUPINE WITH VERY MINIMAL ASSIST FOR LES. REYNOLD GARDNER, OTR/L [phone]; [phone]
[2019-12-03 13:20] VITALS: BP 124/94
[2019-12-03] MEDS ORDERED: NORCO-7.5 PO (16:50)
[2019-12-03 17:38] VITALS: BP 120/79
--- NOTE | 2019-12-03 19:08 | NUR ---
OT NOTE: PT COMPLETED BED MOB TASKS WITH SIDE ROLLING AND BRIDGING TO DECREASE RISK OF SKIN BREAKDOWN. PT BUE AROM EXERCISES TOLERATED. PT STATED HE NAUSROUS WITH BED MOB ACTIVITIES. [phone] THANK YOU,AUBRIE ARREOLA
--- NOTE | 2019-12-04 16:54 | MORECARE ---
CASE MANAGEMENT DISCHARGE SUMMARY PATIENT: KRISH DIOP UNIT: [id number] ADM DATE: 11/20/19 AGE: 54 : 61 SEX: M ROOM/BED: D.2210 AUTHOR: GERALDINE,DOC PHYSICIAN: REFERRING PHYSICIAN: JOSEPH BLANCO MD DATE OF SERVICE: 12/04/19 Discharge Plan Patient Name: KRISH DIOP Facility: [facility]:[place] : 1965 Planned Disposition: Anticipated Discharge Date: Discharge Date: 12/03/2019 Expected LOS: Initial Reviewer: [email or web address] Initial Review Date: 11/20/2019 Generated: 12/04/19 5:54 pm Comments DCP- Discharge Planning Updated by [id number]: Delphine Cowan on 12/03/19 10:[address] SPOKE WITH FAMILY AND PATIENT ABOUT DC PLANS, THEY ARE BOTH AGREEABLE TO INPATIENT REHAB AT [facility]. KASIE SIGNED AND IMM GIVEN AND EXPLAINED. COPY PLACED IN CHART PATIENT WILL BE DISCHARGED TODAY TO INPATIENT REHAB DCP- Discharge Planning Updated by [id number]: Carleen Mcintosh on 12/01/19 9:[address] Patient Name: KRISH DIOP Admission Status: ER Accout number: [id number] Admission Date: 11-20-2019 : 1965 Admission Diagnosis:NAUSEA WITH VOMITING, UNSPECIFIED Attending: JOSEPH BLANCO Current LOS: 11 Anticipated DC Date: Planned Disposition: Primary Insurance: [facility] Discharge Planning Comments: CM met with patient to complete initial dc planning assessment. CM educated patient on the CM role and verbal consent given by patient to complete assessment. Patient lives at home with family. Patient is independent. At discharge patient plans to return home and feels this is a safe discharge. CM discussed availability of home health, rehab services, and medical equipment. Patient will have family to transport home. Uncertain of discharge needs or disposition. Patient denied known discharge needs at this time. CM will continue to follow and will assist as needed with dc plans/needs. Rose Grader: Carleen Mcintosh DCPIA - Discharge Planning Initial Assessment Updated by [id number]: Carleen Mcintosh on 12/01/19 10:29 pm * Is the patient Alert and Oriented? Yes * How many steps to enter\exit or inside your home? * PCP IJEOMA * Pharmacy [facility] * Preadmission Environment Home with Family * ADLs Independent * Equipment None * List name and contact numbers for known caregivers / representatives who currently or will assist patient after discharge: DAMEON DIOP - - [phone] * Verbal permission to speak to the caregivers and representatives has been obtained from the patient. Yes * Community resources currently utilized None * Additional services required to return to the preadmission environment? No * Can the patient safely return to the preadmission environment? Yes * Has this patient been hospitalized within the prior 30 days at any hospital? No Coverage Notice Reviewer: [email or web address] Dustin Cowan Notice Issued Date-Time: 12/03/2019 10:55 Notice Type: Patient Choice Letter Notice Delivered To: Family Member Relationship to Patient: Sheet Metal Fabricator Name: DAMEON DIOP Delivery Method: HAND - Hand Delivered Tegan Days: Prior Verbal Notification: Recipient Understood Notice: Yes Recipient Signature: Yes Med Rec Note Co-signed by Attending: Coverage Notice Comment: KASIE Reviewer: [id number] Cowan Notice Issued Date-Time: 12/03/2019 10:55 Notice Type: IM Discharge Notice Notice Delivered To: Patient Relationship to Patient: Sheet Metal Fabricator Name: DAMEON LIBBY Delivery Method: HAND - Hand Delivered Tegan Days: Prior Verbal Notification: Recipient Understood Notice: Yes Recipient Signature: Yes Med Rec Note Co-signed by Attending: Coverage Notice Comment: IMM WENT OVER DAMEON SIGNED PT VERBALIZED UNDERSTANDING Last DP export: 12/03/19 10:56 a Patient Name: KRISH DIOP Page [phone] at 1654 All edits/amendments must be made on the electronic document DICTATION DATE: 12/04/191653 REDRAWER: CARMINE 12/04/191653 RPT#: [id number] DC DATE:12/03/19 STATUS: DIS IN [facility] [address] [place] [address] END OF REPORT
== END 2019-12-03 18:49 | DRG 981 ==
LOC: D.ER 05:00 → D.ICU 08:51 → D.M2 08:51 → D.CVICU 08:51 → D.M2 11-21 13:07 → D.ICU 11-24 22:28 → D.CVICU 11-25 03:16 → D.ICU 12-02 12:39 → D.MS 12-02 15:40
PROVIDERS: Emergency Medicine; Family Medicine; Family Medicine Adult Medicine; Internal Medicine Pulmonary Disease; Neurological Surgery; ADMIT Family Medicine; ATTEND Family Medicine
PROC: 00NC0ZZ Release Cerebellum, Open Approach (ICD-10-PCS; principal; 2019-11-25 07:30)
DX: J18.9 Pneumonia, unspecified organism (principal); I63.9 Cerebral infarction, unspecified; J96.01 Acute respiratory failure with hypoxia; E11.65 Type 2 diabetes mellitus with hyperglycemia; I25.10 Atherosclerotic heart disease of native coronary artery without angina pectoris; K21.9 Gastro-esophageal reflux disease without esophagitis; I10 Essential (primary) hypertension; K29.70 Gastritis, unspecified, without bleeding; R42 Dizziness and giddiness; Z91.19 Patient's noncompliance with other medical treatment and regimen; Z79.4 Long term (current) use of insulin

== ENCOUNTER 2019-12-03 18:49 | Inpatient (IN) | payer MEDICARE ==
[~2019-12-03] VITALS: Ht 180.3 cm; Wt 85.7 kg
[~2019-12-03 18:49] MED LIST changes: +FUROSEMIDE10 MG/M1 IV; +HUMALOG 30100 UNITS/ SC; +LANTUS SOLOSTAR3 ML SC; +MEDROL DOSE PACK4 MG PO; +NORCO-7.5 PO; +PROTONIX40 MG PO; +SCOPOLAMINE1 EACH TRANSDERM; +Xopenex 0.63 MG INH UPD
--- NOTE | 2019-12-03 20:00 | NUR ---
AWAKE AND ALERT. ADMITTED TO REHAB AND SERVICES OF DR BOWIE. ORIENTED X 3. C/O HEADACHE. RESPIRATIONS UNLABORED. IN ROOM. SEE ADMISSION ASSESSMENT.
[2019-12-03 23:50] VITALS: BP 130/90; BMI 26.4
--- NOTE | 2019-12-04 02:51 | NUR ---
SLEEPING WITH RESPIRAITONS UNLABORED. NO DISTRESS NOTED.
--- NOTE | 2019-12-04 05:17 | NUR ---
QUIET HOURS. NO ACUTE CHANGES IN CONDITION THIS SHIFT. LAMONT PATENT. STATES HEAD IS FEELING A LITTLE BETTER. WILL CONTINUE TO MONITOR.
[2019-12-04 06:03] LABS: BILIRUBIN NEGATIVE (NEGATIVE); GLUCOSE NEGATIVE (NEGATIVE); KETONE NEGATIVE (NEGATIVE); NITRITE NEGATIVE (NEGATIVE); SPECIFIC GRAVITY 1.015 (1.005-1.020); UROBILINOGEN NORMAL (NORMAL)
[2019-12-04 06:03] LABS: CALCIUM 8.9 mg/dL (8.5-10.1); CARBON DIOXIDE 29.5 mmol/L (21.0-32.0); CREATININE - SERUM 1.3 mg/dL (0.6-1.3); POTASSIUM - SERUM 3.5 mmol/L (3.5-5.1)
[2019-12-04 06:04] LABS: BACTERIA MODERATE /hpf (NEGATIVE); EPITHELIAL CELLS 0-5 /hpf (0-5); YEAST >1+ WITH HYPHAE /hpf (NONE SEEN)
--- NOTE | 2019-12-04 07:24 | NUR ---
PT RESTING IN BED WITH EYES OPEN CALL LIGHT IN REACH WILL MONITER
[2019-12-04 08:40] LABS: HEMATOCRIT 49.1 % (42.0-54.0); HEMOGLOBIN 16.9 g/dL (13.5-17.5); LYMPHOCYTES 22.1 % (15-50); MCH 31.6 pg (26.0-34.0); MCHC 34.4 g/dL (31.0-37.0); MCV 91.8 fL (80.0-100.0); MEAN PLATELET VOLUME 9.6 fL (7.4-10.4); NEUTROPHILS 70.2 % (40-80); PLATELET COUNT 318 10x3/uL (130-400); RBC 5.35 10x6/uL (4.20-6.10); WBC 17.6 10x3/uL (4.8-10.8)
--- NOTE | 2019-12-04 13:32 | NUR ---
PATIENT ADMITTED TO REHAB FROM ACUTE FLOOR. HIS PCP IS DR. RAPHAEL. HE HAS NO DME AT THIS TIME AT HOME. DISCHARGE PLANS ARE FOR HIM TO RETURN WITH HIS SPOUSE. WILL CONTINUE TO FOLLOW WITH PATIENT.
[2019-12-04 14:55] VITALS: BP 127/90
--- NOTE | 2019-12-04 15:00 | NUR ---
PT RESTING IN BED WITH EYES OPEN CALL LIGHT IN REACH WILL MONITER
[2019-12-04 16:20] VITALS: BMI 26.3
--- NOTE | 2019-12-04 18:07 | NUR ---
PT ATE ABOUT 10% OF DINNER GOT NAUSEATED, HAD EMESIS OF THE 10% THAT HE ATE, GAVE PRN ZOPHRAN AT 1756, PT STATES FEELS A LITTLE BETTER
--- NOTE | 2019-12-04 19:07 | NUR ---
RECEIVED PT LYING IN BED EYES CLOSED WITH COOL WASHCLOTH OVER FACE. PT IS AWAKE, ALERT AND ORIENTED X4. AT BEDSIDE. C/O 7/10 BURNING PRESSURE HEAD PAIN. PAIN MEDICATION WAS ADMINSTERED APPROX 2 HOURS AGO BY NAHUM DOMINGO. PT STATES HEAD PAIN HAS NOT CHANGED NO WORSE THAN PREVIOUS DAYS. HOB ELEVATED TO 30 DEGREES. ROOM IS KEPT DARK FOR COMFORT AND LIGHT SENSITIVITY. CELESTE INTACT TO POSTERIOR HEAD. MIGUEL PATENT AND FREE FROM KINKS. CALL LIGHT WITHIN REACH. FALL PRECAUTIONS IN PLACE. CPOC
[2019-12-04 19:10] VITALS: BP 117/81
--- NOTE | 2019-12-05 00:29 | NUR ---
PT LYING IN BED ON LEFT SIDE EYES CLOSED RESTING QUIETLY. RR EVEN AND UNLABORED. CALL LIGHT WITHIN REACH. FALL PRECAUTIONS IN PLACE. CPOC
--- NOTE | 2019-12-05 03:07 | NUR ---
PT LYING IN BED EYES CLOSED RESTING. HOB ELEVATED. RR EVEN AND UNLABORED. CPOC
--- NOTE | 2019-12-05 05:20 | NUR ---
PT LYING IN BED ON LEFT SIDE. C/O EXCRUITIATING THROBBING HEAD PAIN WITH NAUSEA. WILL ADMININSTER MEDICATION PER ORDER. PERFORMED LINE DRAW FOR LAB PER PROTOCOL. MIGUEL EMPTIED 1000ML YELLOW URINE. CALL LIGHT WITHIN REACH. FALL PRECAUTIONS IN PLACE. CPOC
[2019-12-05 05:40] LABS: BASOPHILS 0.2 % (0-2); EOSINOPHILS 0.6 % (0-7); HEMATOCRIT 46.4 % (42.0-54.0); HEMOGLOBIN 16.1 g/dL (13.5-17.5); IMMATURE GRANULOCYTES 0.8 % (0-5); LYMPHOCYTES 17.9 % (15-50); MCH 31.9 pg (26.0-34.0); MCHC 34.7 g/dL (31.0-37.0); MCV 91.9 fL (80.0-100.0); MEAN PLATELET VOLUME 9.6 fL (7.4-10.4); MONOCYTES 5.6 % (2-11); NEUTROPHILS 74.9 % (40-80); PLATELET COUNT 309 10x3/uL (130-400); RBC 5.05 10x6/uL (4.20-6.10); WBC 16.6 10x3/uL (4.8-10.8)
[2019-12-05 05:51] LABS: ANION GAP 12.3 mmol/L (8-16); CALCIUM 9.2 mg/dL (8.5-10.1); CARBON DIOXIDE 30.4 mmol/L (21.0-32.0); CREATININE - SERUM 1.3 mg/dL (0.6-1.3); POTASSIUM - SERUM 3.7 mmol/L (3.5-5.1)
--- NOTE | 2019-12-05 08:10 | NUR ---
RESTING IN BED WITH EYES CLOSED AT BEDSIDE, DENIES ANY NEEDS AT THIS TIME, C/L FLUIDS IN REACH.
[2019-12-05 08:18] VITALS: BP 113/74
--- NOTE | 2019-12-05 12:00 | NUR ---
RESTING IN BED WITH EYES CLOSED, DENIES ANY NEEDS AT THIS TIME, AT BEDSIDE, C/L AND FLUIDS IN REACH.
--- NOTE | 2019-12-05 17:22 | NUR ---
RESTING IN BED, JUST RETURNED FROM MRI, DENIES ANY NEEDS AT THIS TIME, C/L AND FLUIDS IN REACH.
--- NOTE | 2019-12-05 18:43 | NUR ---
BEDSIDE REPORT COMPLETE. PT LYING IN BED ON RIGHT SIDE EYES CLOSED APPEARS TO BE RESTING. COOL WASHCLOTH OVER EYES, HOB 30 DEGREES. EASILY AROUSED VERBAL STIMULI. C/O THROBBING HEAD PAIN 8 NORCO 10/325MG ADMININSTERED APPROX 30 MINUTES AGO BY HARJEET DELACRUZ PER EMAR. MIGUEL PATENT FREE FROM KINKS. LEFT SUBCLAVIAN CENTRAL LINE WITHOUT REDNESS. DRESSING INTACT. NO ACUTE DISTRESS NOTED. ALERT AND ORIENTED X4. NO OTHER CONCERNS VOICED. CALL LIGHT AND WATER WITHIN REACH. FALL PRECAUTIONS IN PLACE. WILL KEEP ROOM COOL AND DARK FOR COMFORT. WILL CONTINUE TO MONITOR
[2019-12-05 19:30] VITALS: BP 114/77
--- NOTE | 2019-12-05 19:30 | NUR ---
PT STILL C/O HEAD PAIN ADVISED PT DR. BOWIE DID INCREASE DOSE OF NORCO BUT DID NOT CHANGE TIME INTERVAL STILL Q8HP. PT VERBALIZED UNDERSTANDING. PT INQUIRED ABOUT MRI RESULTS INFORMED PT WOULD GO OVER FINDINGS. PT VERBALIZED UNDERSTANDING. VS STABLE. SHIFT ASSESSMENT COMPLETE. CALL LIGHT AND WATER WITHIN REACH. FALL PRECAUTIONS IN PLACE. CPOC
--- NOTE | 2019-12-06 00:02 | NUR ---
PT LYING IN BED ON RIGHT SIDE EYES CLOSED RESTING. HOB ELEVATED. RR EVEN AND UNLABORED. CALL LIGHT WITHIN REACH. FALL PRECAUTIONS IN PLACE. CPOC
--- NOTE | 2019-12-06 03:31 | NUR ---
PT LYING IN BED ON LEFT SIDE EYES CLOSED RESTING. HOB ELEVATED. NO ACUTE CHANGES IN CONDITION NOTED. RR EVEN AND UNLABORED. CALL LIGHT WITHIN REACH. CPOC
--- NOTE | 2019-12-06 06:08 | NUR ---
PT LYING IN BED AWAKE. ADMININSTERED NORCO 10/325MG FOR HEAD PAIN 8/10 THROBBING. C/O NAUSEA ZOFRAN ADMININSTRED. NO ACUTE CHANGES IN CONDITION THIS SHIFT. 400ML URINE EMPTIED FROM MIGUEL. CALL LIGHT AND WATER WITHIN REACH. FALL PRECAUTIONS IN PLACE. CPOC
--- NOTE | 2019-12-06 08:04 | NUR ---
UP IN BED EATING BREAKFAST, AT BEDSIDE, DENIES ANY NEEDS AT THIS TIME, C/L AND FLUIDS IN REACH.
--- NOTE | 2019-12-06 12:00 | NUR ---
LYING IN BED DOING THERAPY EXERCISES, IN THE ROOM, DENIES ANY NEEDS AT THIS TIME, C/L AND FLUIDS IN REACH.
--- NOTE | 2019-12-06 15:53 | NUR ---
SITTING UP IN BED EATING, AT BEDSIDE, DENIES ANY NEEDS AT THIS TIME, C/L AND FLUIDS IN REACH.
--- NOTE | 2019-12-06 17:15 | NUR ---
I have reviewed this patient and I concur with the Shift Assessment completed by the Licensed Practical Nurse today this shift.
[2019-12-06 19:05] VITALS: BP 150/90
--- NOTE | 2019-12-06 19:05 | NUR ---
RECEIVED PT LYING IN BED AWAKE. PT HAS COOL WASHCLOTH OVER EYES AND ROOM DARK AND COOL FOR COMFORT. C/O ACHING AND PRESSURE TO HEAD, LIGHT SENSITIVITY, SOME DIZZNESS WHEN UP. PT DID HAVE SOME NAUSEA WITH VOMITTING EARLY THIS EVENING BUT TELLS THIS NURSE IT HAS SUBSIDED FOR NOW. PT STATED PAIN HAS IMPROVED TODAY AND WAS ABLE TO EAT BETTER. NO FAMILY AT BEDSIDE NOTED. PT STATES MIGUEL HAS BEEN CAUSING HIM DISCOMFORT AND WANTS IT REMOVED WILL START BLADDER TRAINING. EDUCATED PT ON BLADDER TRAINING. PT VERBALIZED UNDERSTANDING. NO OTHER NEEDS VOICED. LEFT SUBCLAVIAN CVL WITHOUT REDNESS OR SWELLING. DRESSING INTACT. CALL LIGHT AND WATER WITHIN REACH. FALL PRECAUTIONS IN PLACE. CPOC
--- NOTE | 2019-12-06 20:45 | NUR ---
PT CALLED FOR MIGUEL TO BE UNCLAMPED HAS URGE TO URINATE WITH LOWER ABD DISCOMFORT. UNCLAMPED MIGUEL NOTED SCANT AMOUNT OF URINE IN CATH TUBE. PALPATED BLADDER AND NOTED BLADDER TO BE DISTENDED. FLUSHED MIGUEL WITH 20ML STERILE WATER WITH RESISTANCE. PT IS GRIMACING AND STATING "MY PENIS FEELS LIKE IT'S ON FIRE". REMOVED 8ML SALINE FROM BULB AND D/C MIGUEL WITH CATH TIP INTACT. MIGUEL CATH TIP WAS CLOGGED WITH YELLOWISH MUCUS. TIP OF PENIS RED APPLIED BUTTPASTE TO HEAD OF PENIS. PT STATES SOME DISCOMFORT WAS ALLEVIATED. PROVIDED URINAL. 12/06/19 2100-PT VOIDED 900ML STRAW COLOR URINE, PALPATED BLADDER DISTENTION RESOLVED. DENIES ANY DISCOMFORT. WILL CONTINUE TO MONITOR
--- NOTE | 2019-12-06 22:51 | NUR ---
QUIET HOURS. PT LYING IN BED ON RIGHT SIDE EYES CLOSED RESTING COMFORTABLY. HOB ELEVATED. RR EVEN AND UNLABORED. CALL LIGHT WITHIN REACH. FALL PRECAUTIONS IN PLACE. CPOC
--- NOTE | 2019-12-07 02:54 | NUR ---
PT LYING IN BED EYES CLOSED RESTING QUIETLY. RR EVEN AND UNLABORED. CALL LIGHT WITHIN REACH. FALL PRECAUTIONS IN PLACE. CPOC
--- NOTE | 2019-12-07 05:44 | NUR ---
PT LYING IN BED ON RIGHT SIDE EYES CLOSED RESTING COMFORTABLY. RR EVEN AND UNLABORED. 400ML EMPTIED FROM URINAL. NO ACUTE CHANGES IN CONDITION THIS SHIFT. CALL LIGHT WITHIN REACH. FALL PRECAUTIONS IN PLACE. CPOC
[2019-12-07 08:30] VITALS: BP 108/69
--- NOTE | 2019-12-07 09:40 | NUR ---
PARTICIPATING IN THERAPY. NO DISTRESS NOTED.
--- NOTE | 2019-12-07 11:00 | NUR ---
NO CHANGE IN ASSESSMENT. ZOFRAN GIVEN FOR NAUSEA THIS AM. NO C/O NAUSEA AT THIS TIME. IN THERAPY.
--- NOTE | 2019-12-07 12:32 | NUR ---
Nutrition Follow-up: Diet: Diabetic PO intake: ~75% average x last 8 meals. Per chart review patient has been having N/V and headaches recently. Patient states that his appetite is "not getting any better." He denies needs from dietary at this time. Last BM: 12/04/19. Wt: 189# (12/04/19) Meds noted: SSI, lantus, lasix. Labs noted: POC Glu 97(WNL) Recommend continue current diet. RD following.
--- NOTE | 2019-12-07 14:47 | NUR ---
HAD AFTERNOON THERAPY. RETURNED TO ROOM NOW AT THIS TIME. NO DISTRESS NOTED. CL IN REACH.
--- NOTE | 2019-12-07 16:52 | RHP ---
PATIENT: KRISH DIOP MEDICAL RECORD: [id number] ACCOUNT: [id number] LOCATION:[facility] : [birth year] ADMISSION DATE: 12/03/19 REHABILITATION HISTORY AND PHYSICAL EXAMINATION POST ADMISSION PHYSICIAN EXAMINATION ADMITTING DIAGNOSIS: Cerebrovascular accident. HISTORY OF PRESENT ILLNESS: The patient was admitted to the inpatient rehab with a right cerebellar hemispheric subacute infarct with effacement of the medulla and the fourth ventricle. The patient did not have any hydrocephalus. He is status post craniotomy on 11/25/2019 with hematoma and not a mass. He is a 54-year-old gentleman who has got a history of diabetes, hypertension, coronary artery disease, coronary artery bypass grafting, presented to the ED with dizziness, nausea and vomiting. He had some mild dyspnea, but no dyspnea on exertion. The patient had had no loss of taste or sore throat. The patient was mildly hypoxic in the ED. Chest x-ray showed a lingular pneumonia. He was admitted with lower lobe pneumonia, hypoxia and diabetes mellitus type 2. The patient had a negative COVID test. The patient had been reporting a headache and vertigo. CT of his head was done, especially in light of his recent diagnosis of having a mass lesion and never been followed up and also had a history of seizure-like activity. CT did demonstrate a subacute right cerebellar infarction, possibly with some hemorrhagic conversion. The patient had reported progressive vertigo. The patient was seen and evaluated by Dr. Brownlee. On 11/25/2019, he underwent a craniotomy for mass due to increased intracranial pressure. He was intubated postoperatively with management per pulmonary. The patient has had a drain discharged from his head. He continues to have a dressing to his head. He has been seen by speech therapy, continued to be receiving physical and occupational therapy during his stay. He needs to be monitored closely for neurological changes, recent mass, hematoma evacuation. He has been having dizziness, headache and other visual problems at times. We need to monitor his cognition, pain control, monitoring signs for blood sugar problems. He is on electrolyte protocol. The patient has weakness, balance deficits, decreased activity tolerance, impaired mobility, decreased range of motion, decreased strength. He is a medical complex and risk for falls. He has got unsteady gait and balance. He is independent with his ADLs and mobility prior to this. He is currently set up for mod assist for ADLs and mod assist for mobility with use of a rolling walker. The patient would like to return back to his prior level of functioning. He and his would like for him to return home. COMORBIDITIES: Include weakness, right cerebellar hemispheric infarct, gastroesophageal reflux disease, diabetes with hyperglycemia, chronic pain, hypertension, resolved respiratory problems. He has got a history of debility, hyponatremia, elevated LFTs, nausea and vomiting. PAST MEDICAL HISTORY: Significant for sinus problems, diabetes, hypertension, NV, coronary artery bypass grafting, pneumonia, brain tumor, acid reflux, chronic pain. PAST SURGICAL HISTORY: Includes coronary artery bypass grafting and now he has had craniotomy. ALLERGIES: No known drug allergies. HISTORY AND PHYSICAL [id number] KRISH DIOP CURRENT MEDICATIONS: Include Protonix 40 mg daily, Xopenex updrafts every 8 hours p.r.n. He is on a glucose replacement protocol. He is on furosemide 20 mg b.i.d., Lantus 60 units at bedtime, Neurontin 100 mg b.i.d., he is on a low-resistant sliding scale with insulin, he is on hydrocodone 7.5/325 one tab every 8 hours p.r.n., and scopolamine patch for dizziness. HABITS: No alcohol or tobacco use. FAMILY HISTORY: Noncontributory. SOCIAL HISTORY: The patient hopes to return back home and get back to his prior level of functioning. REVIEW OF SYSTEMS: GENERAL: Does complain of weakness and fatigue. HEENT: Denies cold, cough, or congestion. CARDIOVASCULAR: Denies any chest pain. PHYSICAL EXAMINATION: VITAL SIGNS: Stable, afebrile. GENERAL: A well-developed gentleman in no acute distress upon exam. HEENT: Does have noted surgical areas to his head. His pupils are equal, round, reactive to light. Extraocular muscles are intact. NECK: Supple. No lymphadenopathy. LUNGS: Clear at this time. No wheezing, rhonchi or rales. HEART: Regular rate and rhythm. No murmurs, rubs or gallops. ABDOMEN: Soft, benign, and nondistended. Positive bowel sounds times 4. EXTREMITIES: No clubbing, cyanosis or edema. NEUROLOGIC: He is mainly intact. LABORATORY DATA: His white count today though is noted to be 17.6, his H&H are 16 and 49 and platelet count was noted to be 318. His UA showed trace blood, 1+ leukocyte esterase. He did have moderate bacteria. ASSESSMENT: This is a 54-year-old gentleman admitted to the rehab with a working diagnosis of cerebrovascular accident. The patient has potential to make improvement. We instituted the following multidisciplinary therapies including, not limited to physical, occupational, respiratory, speech, nutritional services, prosthetics and orthotics. Given his complex medical condition and risk for more complications, rehabilitation services cannot be provided at a low level of care such as assisted facility. PLAN: 1. Admit to [facility] to include the following disciplines; A. Physical therapy to improve gait, all transfer skills and bed mobility to a modified independent level. B. Occupational therapy to improve activities of daily living. C. Case management to help with discharge planning and placement options. D. Nutrition to assist with nutritional needs. E. Rehabilitation nursing to assist in monitoring the patient's underlying medical conditions and to assist with any type of bowel or bladder management. 2. The patient's current medication and medical care will be continued. 3. The patient will be placed on standard fall precautions. 4. We will watch his white count closely and I am going to see again in the a.m. and we will followup then. HISTORY AND PHYSICAL [id number] KRISH DIOP TRANSINT:[id number] Voice Confirmation ID: [id number] DOCUMENT ID: [id number] JORDY notes whether there has been none or any medical/functional change since admission: - No change since prescreen. JORDY attests patient continues to be appropriate for IRF: - Continues to be appropriate. MARIKA BOWIE MD at 1652 CC: [id number] DICTATION DATE: 12/04/19 0909 OFFICE MACHINE TECHNICIAN: 12/04/19 1013 ADM IN [facility] [address] [place] [address]
--- NOTE | 2019-12-07 19:30 | NUR ---
AWAKE AND ALERT. RESTING IN BED WITH RESPIRATIONS UNLABORED. NO DISTRESS NOTED. CALL LIGHT IN REACH. LEFT SUBCLAVIAN IV INTACT.
[2019-12-07 20:00] VITALS: BP 126/82
--- NOTE | 2019-12-08 01:18 | NUR ---
SLEEPING WITH RESPIRAITONS UNLABORED. NO DISTRESS NOTED.
--- NOTE | 2019-12-08 06:47 | NUR ---
QUIET HOURS. NO ACUTE CHANGES IN CONDITION THIS SHIFT. RESTING IN BED WITH NO DISTRESS NOTED.
[2019-12-08 08:00] VITALS: BP 111/76
--- NOTE | 2019-12-08 08:00 | NUR ---
SHIFT ASSMT COMPLETED.
--- NOTE | 2019-12-08 19:52 | NUR ---
AWAKE AND ALERT. RESTING IN BED WITH RESPIRAITONS UNLABORED. NO DISTRESS NOTED.
[2019-12-08 20:00] VITALS: BP 110/76
--- NOTE | 2019-12-09 01:19 | NUR ---
RESTING IN BED WITH EYES CLOSED AND RESPIRAITONS UNLABORED. NO DISTRESS NOTED.
--- NOTE | 2019-12-09 02:30 | NUR ---
CONTINUES SLEEPING WITH RESPIRATIONS UNLABORED. URINAL EMPITED OF 800ML
--- NOTE | 2019-12-09 06:02 | NUR ---
QUIET HOURS. NO ACUTE CHANGES IN CONDITION THIS SHIFT. BLOOD SUGAR 224. TREATED PER SLIDING SCALE. RESPIRAITONS UNLABORED. NO DISTRESS NOTED.
[2019-12-09 08:00] VITALS: BP 114/73
[2019-12-09 08:46] LABS: BASOPHILS 0.2 % (0-2); EOSINOPHILS 0.6 % (0-7); HEMATOCRIT 41.4 % (42.0-54.0); HEMOGLOBIN 14.2 g/dL (13.5-17.5); IMMATURE GRANULOCYTES 0.5 % (0-5); LYMPHOCYTES 25.9 % (15-50); MCH 31.5 pg (26.0-34.0); MCHC 34.3 g/dL (31.0-37.0); MCV 91.8 fL (80.0-100.0); MEAN PLATELET VOLUME 9.6 fL (7.4-10.4); MONOCYTES 4.8 % (2-11); PLATELET COUNT 297 10x3/uL (130-400); RBC 4.51 10x6/uL (4.20-6.10); WBC 10.8 10x3/uL (4.8-10.8)
[2019-12-09 09:07] LABS: ANION GAP 9.9 mmol/L (8-16); CALCIUM 8.9 mg/dL (8.5-10.1); CARBON DIOXIDE 31.6 mmol/L (21.0-32.0); CREATININE - SERUM 1.3 mg/dL (0.6-1.3); POTASSIUM - SERUM 3.5 mmol/L (3.5-5.1)
--- NOTE | 2019-12-09 09:17 | NUR ---
Nutrition Follow-up: Diet: Diabetic PO intake: ~78% average x last 9 meals Last BM: 12/08/19. WT: 189# (12/04/19) Meds noted: SSI, lantus, lasix. Labs noted: Glu 158(H) Recommend continue current diet. RD following.
--- NOTE | 2019-12-09 13:50 | NUR ---
CARE TEAM MEETING: PATIENT SPOUSE ATTENDED THE MEETING.HER QUESTIONS AND CONCERNS WERE ADDRESSED. PATIENT IS WANTING TO GO HOME BUT AT THIS TIME PATIENT IS IN NEED OF CARDIO WORK UP. WILL CONTINUE TO FOLLOW WITH PATIENT. TENATIVE DC DATE IS 12/22/19.
--- NOTE | 2019-12-09 19:05 | NUR ---
RECEIVED PT LYING IN BED WATCHING TV. ALERT AND ORIENTED X4. DENIES ANY NEEDS OR PAIN. NO SIGNS OF ACUTE DISTRESS NOTED. CALL LIGHT AND URINAL WITHIN REACH. FALL PRECAUTIONS IN PLACE. CPOC
[2019-12-09 20:36] VITALS: BP 120/82
--- NOTE | 2019-12-09 23:17 | NUR ---
QUIET HOURS. PT LYING IN BED ON RIGHT SIDE EYES CLOSED RESTING QUIETLY. RR EVEN AND UNLABORED. CALL LIGHT WITHIN REACH. FALL PRECAUTIONS IN PLACE. CPOC
--- NOTE | 2019-12-10 02:06 | NUR ---
PT LYING IN BED ON LEFT SIDE EYES CLOSED RESTING. RR EVEN AND UNLABORED. CALL LIGHT WITHIN REACH. CPOC
--- NOTE | 2019-12-10 04:49 | NUR ---
PT LYING IN BED EYES CLOSED RESTING QUIETLY. NO ACUTE CHANGES IN CONDITION NOTED THIS SHIFT. CALL LIGHT WITHIN REACH. CPOC
--- NOTE | 2019-12-10 08:15 | NUR ---
SITTING UP IN BED EATING BREAKFAST, V/S AND ASSESSMENT COMPLETE, DENIES ANY NEEDS AT THIS TIME, C/L AND FLUIDS IN REACH.
[2019-12-10 09:48] VITALS: BP 115/78
--- NOTE | 2019-12-10 11:55 | NUR ---
SITTING UP IN CHAIR, DENIES ANY NEEDS AT THIS TIME, C/L AND FLUIDS IN REACH.
[2019-12-10 15:02] VITALS: Ht 180.3 cm; Wt 85.7 kg
--- NOTE | 2019-12-10 16:00 | NUR ---
RESTING IN BED AT BEDSIDE, DENIES ANY NEEDS AT THIS TIME, C/L AND FLUIDS IN REACH.
[2019-12-10] MEDS ORDERED: HYDROCODON-ACE1 EA10 PO (16:34)
[2019-12-10] MEDS ORDERED: FUROSEMIDE20 MG PO (16:34)
--- NOTE | 2019-12-10 19:06 | NUR ---
RECEIVED PT SITTING UP IN BED WATCHING TV. ALERT AND ORIENTED X4. DENIES ANY NEEDS OR PAIN. NO SIGNS OF ACUTE DISTRESS NOTED. CALL LIGHT, URINAL, AND WATER WITHIN REACH. FALL PRECAUTIONS IN PLACE. CPOC
[2019-12-10 21:17] VITALS: BP 125/80
--- NOTE | 2019-12-11 01:12 | NUR ---
QUIET HOURS. PT LYING IN BED ON RIGHT SIDE EYES CLOSED RESTING. RR EVEN AND UNLABORED. CALL LIGHT WITHIN REACH. FALL PRECAUTIONS IN PLACE. CPOC
--- NOTE | 2019-12-11 03:52 | NUR ---
PT LYING IN BED ON LEFT SIDE EYES CLOSED RESTING. RR EVEN AND UNLABORED. CALL LIGHT WITHIN REACH. CPOC
--- NOTE | 2019-12-11 07:56 | NUR ---
SITTING UP IN BED EATING BREAKFAST, DENIES ANY NEEDS AT THIS TIME, C/L AND FLUIDS IN REACH.
[2019-12-11 07:58] VITALS: BP 127/82
--- NOTE | 2019-12-11 11:26 | NUR ---
PATIENT DISCHARGING HOME WITH FAMILY TODAY. [facility] WILL PROVIDE THERAPY AT HOME. [facility] WILL DELIVER A WHEELCHAIR TO PATIENT HOME. PATIENT SPOUSE TO CALL DR. RAPHAEL OFFICE FOR AN APPOINTMENT , OFFICE CLOSED TODAY. DR. KUMAR 02/16/20 @ 11:30, DR. KRAMER 01/29/20 @ 9:15, DR. IBRAHIM 02/06/20 @ 9:15, DR. BLACKWELL 02/16/20 @ 10:00. KASIE SIGNED, IMM SERVED AND EXPLAINED, ONE GIEN TO PATIENT AND ONE FILED IN CHART. DISCHARGE INSTRUCTIONS FAXED TO PCP, HOME HEALTH AND REVIEWED WITH PATIENT PER PRIMARY NURSE.
--- NOTE | 2019-12-11 12:15 | NUR ---
SITTING UP IN BED EATING LUNCH, DENIES ANY NEEDS AT THIS TIME, C/L AND FLUIDS IN REACH.
--- NOTE | 2019-12-11 13:00 | NUR ---
PATIENT D/C TO HOME WITH AND ALL PERSONAL BELONGINGS. REVIEWED MEDICATIONS, FOLLOW-UP APPOINTMENTS AND HOME HEALTH. PERSCRIPTIONS CALLED IN AT PHARMACY AND PAIN PERSCRIPTION GIVEN TO PATIENT.
== END 2019-12-11 13:00 | disposition home health service (06) | DRG 56 ==
LOC: D.REHAB 18:49
PROVIDERS: ADMIT Emergency Medicine; ATTEND Emergency Medicine
DX: I69.30 Unspecified sequelae of cerebral infarction (principal); J18.9 Pneumonia, unspecified organism; E87.1 Hypo-osmolality and hyponatremia; R53.1 Weakness; K21.9 Gastro-esophageal reflux disease without esophagitis; E11.65 Type 2 diabetes mellitus with hyperglycemia; G89.29 Other chronic pain; I10 Essential (primary) hypertension; R11.2 Nausea with vomiting, unspecified; R79.89 Other specified abnormal findings of blood chemistry; R53.81 Other malaise; R42 Dizziness and giddiness; I25.10 Atherosclerotic heart disease of native coronary artery without angina pectoris; E78.5 Hyperlipidemia, unspecified

== ENCOUNTER 2019-12-14 07:35 | Emergency (ER) | payer MEDICARE ==
[~2019-12-14] VITALS: Ht 180.3 cm; Wt 86.4 kg
[~2019-12-14 07:35] MED LIST changes: +FUROSEMIDE20 MG PO; +HYDROCODON-ACE1 EA10 PO
[2019-12-14 07:55] VITALS: Ht 180.3 cm; Wt 86.4 kg
[2019-12-14] MEDS ORDERED: NEURONTIN600 MG PO (07:57)
[2019-12-14 08:21] LABS: CALC OSMOLALITY 286 mosm/kg (275-300); CALCIUM 8.7 mg/dL (8.5-10.1); CARBON DIOXIDE 27.3 mmol/L (21.0-32.0); CHLORIDE - SERUM 99 mmol/L (98-107); CREATININE - SERUM 1.3 mg/dL (0.6-1.3); SODIUM 136 mmol/L (136-145); UREA NITROGEN 24 mg/dL (7-18); eGFR NON AFRICAN AMERICAN 61 mL/min (90-120)
[2019-12-14 08:22] LABS: GLUCOSE 292 mg/dL (74-106)
[2019-12-14 08:42] LABS: ALBUMIN 2.9 g/dL (3.4-5.0); ALKALINE PHOSPHATASE 253 U/L (30-120); ALT (SGPT) 78 U/L (10-68); BILIRUBIN - TOTAL 0.76 mg/dL (0.2-1.3); CKMB 1.2 U/L (0.0-3.6); CREATINE KINASE 56 UL (21-232); MAGNESIUM - SERUM 1.6 mg/dL (1.8-2.4); PROTEIN - SERUM 6.6 g/dL (6.4-8.2); THYROID STIMULATING HORMONE 4.04 uIU/mL (0.36-3.74)
[2019-12-14 08:44] LABS: BASOPHILS 0.2 % (0-2); EOSINOPHILS 0.2 % (0-7); HEMATOCRIT 40.1 % (42.0-54.0); HEMOGLOBIN 13.8 g/dL (13.5-17.5); IMMATURE GRANULOCYTES 0.7 % (0-5); MCH 31.8 pg (26.0-34.0); MCHC 34.4 g/dL (31.0-37.0); MCV 92.4 fL (80.0-100.0); MEAN PLATELET VOLUME 9.6 fL (7.4-10.4); MONOCYTES 3.8 % (2-11); NEUTROPHILS 81.1 % (40-80); PLATELET COUNT 261 10x3/uL (130-400); RBC 4.34 10x6/uL (4.20-6.10)
[2019-12-14 08:47] LABS: TROPONIN-I 0.121 ng/mL (0.000-0.060)
[2019-12-14 08:51] LABS: APTT 25.3 SECONDS (22.8-39.4); PROTIME 13.2 SECONDS (11.6-15.0)
[2019-12-14 10:19] VITALS: BP 168/100
== END 2019-12-14 10:20 | disposition home or self-care (01) ==
LOC: D.ER 07:35
PROVIDERS: Family Medicine
DX: I63.9 Cerebral infarction, unspecified (principal); R79.89 Other specified abnormal findings of blood chemistry; R47.01 Aphasia; R29.810 Facial weakness; G81.91 Hemiplegia, unspecified affecting right dominant side; I26.99 Other pulmonary embolism without acute cor pulmonale; I10 Essential (primary) hypertension; E11.9 Type 2 diabetes mellitus without complications; I25.2 Old myocardial infarction; K21.9 Gastro-esophageal reflux disease without esophagitis; R42 Dizziness and giddiness; Z79.4 Long term (current) use of insulin